=== PATIENT | male | born 1980 | race Caucasian/White ===

== ENCOUNTER 2017-12-01 18:35 | Inpatient (IN) | payer OTHER ==
--- NOTE | 2017-12-01 20:46 | ER Document Report ---
ED Medical Screen (RME) - General Chief Complaint: Skin Sore(s) Stated Complaint: RIGHT TOE PAIN Time Seen by Provider: 12/01/17 20:27 Notes: 37-year-old male with oozing drainage from his right great toe. Probably present for about 3 weeks according to patient. Has been putting some pads in his shoe and going to work. Denies any pain. Drainage mostly occurs after he has been standing on it. Has been cleaning it but not getting any better. Large hole in the bottom of foot on the big toe. Does not know if he has diabetes but states "I am fat so I probably do have diabetes". - HPI Onset: Other - 2 weeks ago Past Medical History - General Information source: Patient - Social History Frequency of alcohol use: None Drug Abuse: None Renal/ Medical History: Denies: Hx Peritoneal Dialysis Review of Systems - Review of Systems Constitutional: denies: Fever, Malaise, Weakness Cardiovascular: Palpitations, Heart racing Respiratory: denies: Hurts to breathe, Short of breath, Wheezing Musculoskeletal: See HPI Skin: See HPI Physical Exam - Vital signs Vitals: Temp Pulse Resp BP Pulse Ox 99.9 F 124 H 16 139/102 H 97 12/01/17 18:55 12/01/17 18:55 12/01/17 18:55 12/01/17 18:55 12/01/17 18:55 - Cardiovascular Rhythm: Tachycardia Heart sounds: Normal auscultation Murmur: No - Extremities General upper extremity: Normal inspection, Nontender, Normal color, Normal ROM , Normal temperature General lower extremity: Nontender, Normal ROM, Normal temperature, Other - Is a large swollen first great toe on the right foot. On the plantar surface there is a large hole with large amount of devitalized tissue with small amount of drainage and bleeding.. No: Ju's sign Course - Vital Signs Vital signs: Temp Pulse Resp BP Pulse Ox 99.9 F 124 H 16 139/102 H 97 12/01/17 18:55 12/01/17 18:55 12/01/17 18:55 12/01/17 18:55 12/01/17 18:55
--- NOTE | 2017-12-01 21:04 | RADIOLOGY REPORT (SQ) ---
EXAM DESCRIPTION: FOOT RIGHT COMPLETE COMPLETED DATE/TIME: 12/01/2017 8:54 pm REASON FOR STUDY: first toe leison COMPARISON: None. NUMBER OF VIEWS: Three views. TECHNIQUE: AP, lateral and oblique radiographic images acquired of the right foot. LIMITATIONS: None. FINDINGS: MINERALIZATION: Normal. BONES: No acute fracture or dislocation. No worrisome bone lesions. JOINTS: No effusions. SOFT TISSUES: Soft tissue swelling 1st toe with possible ulcer along the plantar surface. Vascular c alcifications. OTHER: No other significant finding. IMPRESSION: SOFT TISSUE SWELLING 1ST TOE WITH POSSIBLE ULCER. NO ACUTE OSSEOUS ABNORMALITY. TECHNICAL DOCUMENTATION: JOB ID: [id number] Project [employer]- All Rights Reserved Reading location - IP/workstation name: [email or web address]
[2017-12-01] MEDS ORDERED: DIPH/PERTUSS(ACELL)/TETANUS VAC/PF 0.5 ML SYR (>=10YO) IM ONE (21:06)
--- NOTE | 2017-12-01 21:07 | ER Document Report ---
ED Extremity Problem, Lower - General Chief Complaint: Skin Sore(s) Stated Complaint: RIGHT TOE PAIN Time Seen by Provider: 12/01/17 20:27 Notes: Patient is a 37-year-old morbidly obese male that comes emergency department for chief complaint of swelling and drainage and redness at the right great toe area. He states he thinks he had a blister initially that popped 3 weeks ago and he has had the symptoms since that time. Intermittent discolored drainage. He states the area does not really hurt. He denies fever or chills, nausea or vomiting. He was sent here by urgent care. He denies smoking, alcohol use, drug use, he denies any diagnosed medical problems, his tetanus is not up-to- date. Past Medical History - General Information source: Patient - Social History Smoking Status: Never Smoker Frequency of alcohol use: None Drug Abuse: None Lives with: Alone Family History: Reviewed & Not Pertinent Patient has suicidal ideation: No Patient has homicidal ideation: No - Medical History Medical History: Negative Renal/ Medical History: Denies: Hx Peritoneal Dialysis Surgical Hx: Negative - Immunizations Immunizations up to date: No Hx Diphtheria, Pertussis, Tetanus Vaccination: Yes Review of Systems - Review of Systems Constitutional: No symptoms reported EENT: No symptoms reported Cardiovascular: No symptoms reported Respiratory: No symptoms reported Gastrointestinal: No symptoms reported Genitourinary: No symptoms reported Male Genitourinary: No symptoms reported Musculoskeletal: See HPI Skin: See HPI Hematologic/Lymphatic: No symptoms reported Neurological/Psychological: No symptoms reported Physical Exam - Vital signs Vitals: Temp Pulse Resp BP Pulse Ox 99.9 F 124 H 16 139/102 H 97 12/01/17 18:55 12/01/17 18:55 12/01/17 18:55 12/01/17 18:55 12/01/17 18:55 - Notes Notes: GENERAL: Alert, interacts well. No acute distress. Morbidly obese. HEAD: Normocephalic, atraumatic. EYES: Pupils equal, round, and reactive to light. Extraocular movements intact. ENT: Oral mucosa moist, tongue midline. NECK: Full range of motion. Supple. Trachea midline. LUNGS: Clear to auscultation bilaterally, no wheezes, rales, or rhonchi. No respiratory distress. HEART: Tachycardic rate, normal rhythm. No murmur ABDOMEN: Soft, non-tender. Non-distended. Bowel sounds present in all 4 quadrants. EXTREMITIES: Right great toe with notable swelling with erythema and warmth extending up to the foot, there is also faint redness extending up towards the leg. Ulceration on the bottom of the toe. Remaining lower extremity exam unremarkable. BACK: no cervical, thoracic, lumbar midline tenderness. No saddle anesthesia, normal distal neurovascular exam. NEUROLOGICAL: Alert and oriented x3. Normal speech. [cranial nerves II through XII grossly intact]. PSYCH: Normal affect, normal mood. SKIN: Warm, dry, normal turgor. No rashes or lesions noted. Course - Re-evaluation Re-evalutation: Patient with notable swelling to the right great toe with erythema and warmth extending up to the foot, there is also faint redness extending up towards the leg. Ulceration noted on the bottom of the toe. No purulent drainage noted. Remaining lower extremity exam is unremarkable. Patient is afebrile but he is tachycardic. CBC shows leukocytosis with elevation of neutrophils but no bandemia. ESR and CRP are both elevated. BMP shows hyperglycemia at 281, he has not eaten since 1130 AM, consistent with undiagnosed type 2 diabetes. Starting vancomycin and adding Pseudomonas coverage. X-ray shows soft tissue swelling, ulcer, no overt evidence of osteomyelitis, no free air. Called and spoke with surgery on-call, Dr. Ly, he requests the patient be n.p.o. after midnight and to be admitted to the hospitalist. Called and spoke with Dr. Terry, hospitalist, patient will be admitted to the medical floor. Patient states understanding and agreement with plan. - Vital Signs Vital signs: Temp Pulse Resp BP Pulse Ox 99.9 F 124 H 16 139/102 H 97 12/01/17 18:55 12/01/17 18:55 12/01/17 18:55 12/01/17 18:55 12/01/17 18:55 - Laboratory Result Diagrams: 12/01/17 20:27 12/01/17 20:27 Laboratory results interpreted by me: 12/01/17 12/01/17 12/01/17 20:27 20:27 20:27 WBC 13.9 H Seg Neutrophils % 80.9 H Lymphocytes % 12.0 L Absolute Neutrophils 11.3 H ESR 57 H Glucose Hemoglobin A1c % Calcium ALT C-Reactive Protein 55.0 H 12/01/17 12/01/17 20:27 20:27 WBC Seg Neutrophils % Lymphocytes % Absolute Neutrophils ESR Glucose 281 H Hemoglobin A1c % 11.7 H Calcium 10.3 H ALT 15 L C-Reactive Protein Discharge - Discharge Clinical Impression: Diabetic infection of right foot, Tachycardia Toe ulcer, right Qualifiers: Non-pressure ulcer stage: unspecified non-pressure ulcer stage Qualified Code(s ): L97.519 - Non-pressure chronic ulcer of other part of right foot with unspecified severity Leukocytosis Qualifiers: Leukocytosis type: unspecified Qualified Code(s): D72.829 - Elevated white blood cell count, unspecified Condition: Stable Disposition: ADMITTED INPATIENT Admitting Provider: Hospitalist Unit Admitted: Medical Floor
[2017-12-01] MEDS ORDERED: VANCOMYCIN HCL INJ 1000 MG VIAL IV ONE (21:43)
[2017-12-01 22:00] LABS: ABSOLUTE BASOPHILS # (AUTO) 0.1 10^3/uL (0.0-0.2); ABSOLUTE LYMPHOCYTES (AUTO) 1.7 10^3/uL (0.5-4.7); ABSOLUTE MONOCYTES (AUTO) 0.9 10^3/uL (0.1-1.4); ABSOLUTE NEUT (AUTO) 11.3 10^3/uL (1.7-8.2); BASOPHILS % (AUTO) 0.7 % (0-2); EOSINOPHILS % (AUTO) 0.3 % (0-6); HEMATOCRIT 43.8 % (37.9-51.0); HEMOGLOBIN 15.1 g/dL (13.5-17.0); MEAN CORPUSCULAR HEMOGLOBIN 29.9 pg (27.0-33.4); MEAN CORPUSCULAR HGB CONC 34.5 g/dL (32.0-36.0); MEAN CORPUSCULAR VOLUME 87 fl (80-97); MONOCYTES % (AUTO) 6.1 % (3-13); PLATELET COUNT 298 10^3/uL (150-450); RED BLOOD COUNT 5.05 10^6/uL (4.35-5.55); RED CELL DISTRIBUTION WIDTH 13.3 % (11.5-14.0); SEGMENTED NEUTROPHILS % (AUTO) 80.9 % (42-78); TOTAL CELLS COUNTED % (AUTO) 100 %; WHITE BLOOD COUNT 13.9 10^3/uL (4.0-10.5)
[2017-12-01 22:06] LABS: ALANINE AMINOTRANSFERASE 15 U/L (21-72); ALBUMIN 4.2 g/dL (3.5-5.0); ALKALINE PHOSPHATASE 94 U/L (38-126); ANION GAP 13 (5-19); ASPARTATE AMINO TRANSFERASE 24 U/L (17-59); BILIRUBIN,DIRECT 0.4 mg/dL (0.0-0.4); BILIRUBIN,TOTAL 0.8 mg/dL (0.2-1.3); BLOOD UREA NITROGEN 16 mg/dL (7-20); CALCIUM 10.3 mg/dL (8.4-10.2); CARBON DIOXIDE 30 mmol/L (22-30); CHLORIDE 98 mmol/L (98-107); GLUCOSE 281 mg/dL (75-110); POTASSIUM 4.2 mmol/L (3.6-5.0); SODIUM 140.9 mmol/L (137-145); TOTAL PROTEIN 7.7 g/dL (6.3-8.2)
[2017-12-01] MEDS ORDERED: CEFEPIME 2 GM/D5W RTU 2 GM/50 ML RTUPB IV ONE (22:10)
[2017-12-01] MEDS ORDERED: NORMAL SALINE 1000 ML 1,000 ML IV ONE (22:19)
[2017-12-01] MEDS ORDERED: ONDANSETRON HCL INJ/PF 4 MG/2 ML SDV IV PRN (22:50)
[2017-12-01] MEDS ORDERED: INSULIN LISPRO 100 UNIT/ML 3 ML VIAL SUBCUT PRN (22:50)
[2017-12-01] MEDS ORDERED: GLUCAGON,HUMAN RECOMB 1 MG INJ IM PRN (22:50)
[2017-12-01] MEDS ORDERED: DEXTROSE 50%-WATER 25 GM/50 ML DISP.SYRIN IV PRN ×2 (22:50)
[2017-12-01] MEDS ORDERED: DEXTROSE 40% GEL 15 GM TUBE PO PRN ×2 (22:50)
[2017-12-01] MEDS ORDERED: MAG HYDROX/AL HYDROX/SIMETH SUSP 30 ML UDCUP PO PRN (22:50)
[2017-12-01] MEDS ORDERED: IPRATROPIUM/ALBUTEROL 0.5-2.5 MG/3 ML AMPUL NEB PRN (22:50)
[2017-12-01] MEDS ORDERED: FENTANYL CITRATE INJ/PF 100 MCG/2 ML AMPUL IV PRN (22:53)
[2017-12-02] MEDS ORDERED: VANCOMYCIN HCL 0 MG in DEXTROSE 5%-WATER 250 ML IV NR (02:00)
--- NOTE | 2017-12-02 04:14 | PDOC H&P ---
History of Present Illness Admission Date/PCP: 12/01/17 23:13 NO LOCALMD Patient complains of: Right toe ulcer History of Present Illness: SVETA HAYES is a 37 year old male with a past medical history of morbid obesity presents with approximately 3 weeks of right toe blister which has been nonpainful however developed a large ulcer with serosanguineous drainage, prompting him to seek evaluation emergency room. Patient denies previous episode. In the emergency room he is found to have a 1 x 1 cm ulcer to the plantar surface of his great toe with surrounding maceration. He denies antibiotic use and is also found to have hyperglycemia of 280. Admitting weight loss over the last year. He started on empiric antibiotics and for the hospitalist for admission. Past Medical History Medical History: None Past Surgical History Past Surgical History: Reports: None Social History Information Source: Patient, [facility] Records Lives with: Alone Smoking Status: Never Smoker Frequency of Alcohol Use: None Hx Recreational Drug Use: No Drugs: None Hx Prescription Drug Abuse: No - Advance Directive Resuscitation Status: Full Code Family History Family History: DM, Other - Father's suicide and mother's brain cancer Parental Family History Reviewed: Yes Children Family History Reviewed: Yes Sibling(s) Family History Reviewed.: Yes Medication/Allergy Allergies/Adverse Reactions: No Known Allergies Allergy (Unverified 12/02/17 02:10) Review of Systems Constitutional: PRESENT: as per HPI, fatigue, weakness, weight loss Eyes: ABSENT: visual disturbances Ears: ABSENT: hearing changes Cardiovascular: ABSENT: chest pain, dyspnea on exertion, edema, orthropnea, palpitations Respiratory: ABSENT: cough, hemoptysis Gastrointestinal: PRESENT: as per HPI, bloating. ABSENT: coffee ground emesis, constipation Genitourinary: PRESENT: other - Polyuria polydipsia Musculoskeletal: ABSENT: joint swelling Integumentary: PRESENT: as per HPI Neurological: PRESENT: numbness. ABSENT: abnormal gait, abnormal speech, confusion, dizziness, focal weakness, syncope Psychiatric: ABSENT: anxiety, depression, homidical ideation, suicidal ideation Endocrine: ABSENT: cold intolerance, heat intolerance, polydipsia, polyuria Hematologic/Lymphatic: ABSENT: easy bleeding, easy bruising Physical Exam Vital Signs: Temp Pulse Resp BP Pulse Ox 98.3 F 109 H 18 135/89 H 100 12/02/17 01:45 12/02/17 01:45 12/02/17 01:45 12/02/17 01:45 12/02/17 01:45 Intake & Output 11/30/17 12/01/17 12/02/17 11:59 11:59 11:59 Weight 135 kg General appearance: PRESENT: cooperative, morbidly obese. ABSENT: hard of hearing Head exam: PRESENT: atraumatic, normocephalic Eye exam: PRESENT: conjunctiva pink, EOMI, PERRLA. ABSENT: scleral icterus Ear exam: PRESENT: normal external ear exam Mouth exam: PRESENT: moist, tongue midline Neck exam: ABSENT: carotid bruit, JVD, lymphadenopathy, thyromegaly Respiratory exam: PRESENT: clear to auscultation cinthia. ABSENT: rales, rhonchi, wheezes Cardiovascular exam: PRESENT: RRR. ABSENT: diastolic murmur, rubs, systolic murmur Pulses: PRESENT: normal dorsalis pedis pul Vascular exam: PRESENT: normal capillary refill GI/Abdominal exam: PRESENT: normal bowel sounds, soft. ABSENT: distended, guarding, mass, organolmegaly, rebound, tenderness Rectal exam: PRESENT: deferred Extremities exam: PRESENT: other - Lower extremity with chronic vascular changes Neurological exam: PRESENT: alert, awake, oriented to person, oriented to place , oriented to time, oriented to situation, CN II-XII grossly intact. ABSENT: motor sensory deficit Psychiatric exam: PRESENT: appropriate affect, normal mood. ABSENT: homicidal ideation, suicidal ideation Skin exam: PRESENT: other - 1 x 1 cm ulcer to the right great toe plantar surface Results Impressions: Foot X-Ray 12/01/17 20:21 IMPRESSION: SOFT TISSUE SWELLING 1ST TOE WITH POSSIBLE ULCER. NO ACUTE OSSEOUS ABNORMALITY. Assessment & Plan - Diagnosis (1) Diabetic infection of right foot Is this a current diagnosis for this admission?: Yes Plan: Empiric antibiotics for MRSA coverage, surgery consult. Follow-up CBC and culture (2) Newly diagnosed diabetes Is this a current diagnosis for this admission?: Yes Plan: Humalog sliding scale while n.p.o., follow-up A1c, education (3) Leukocytosis Qualifiers: Leukocytosis type: unspecified Qualified Code(s): D72.829 - Elevated white blood cell count, unspecified Is this a current diagnosis for this admission?: Yes Plan: Secondary to #1, empiric antibiotics initiated, follow-up CBC and blood culture - Time Time Spent: 30 to 50 Minutes - Inpatient Certification Medical Necessity: Need Close Monitoring Due to Risk of Patient Decompensation
[2017-12-02] MEDS: HEPARIN SOD (PORCINE) 5,000 UNIT/ML 1 ML SYRINGE SUBCUT SCH ×3 (05:23→21:16)
[2017-12-02] MEDS ORDERED: NORMAL SALINE 1000 ML 1,000 ML IV PRN (06:13)
--- NOTE | 2017-12-02 06:33 | PDOC CONSULTATION ---
Consultation Consult Date: 12/02/17 Attending physician:: BARRERA MARTÍNEZ Consult reason:: Infected right great toe History of Present Illness Admission Date/PCP: 12/01/17 23:13 NO LOCALMD Patient complains of: Right great toe problems History of Present Illness: SVETA HAYES is a 37 year old male Who presents to the emergency department complaining of a several week history of swelling, discoloration, drainage from his right great toe. He denies history of direct trauma. This is his first toe infection. He was seen in the emergency department where he was found to have an infected right great toe, leukocytosis, and elevated blood sugar. He denies history of diabetes mellitus. He was admitted to the hospitalist service with surgical services consulted. X-ray revealed ulcer right great toe no obvious evidence of osteomyelitis . He was started on intravenous antibiotics. Past Medical History Past Medical History: Obesity Past Surgical History Past Surgical History: Reports: None Social History Lives with: Alone Smoking Status: Never Smoker Frequency of Alcohol Use: None Hx Recreational Drug Use: No Drugs: None Hx Prescription Drug Abuse: No - Advance Directive Resuscitation Status: Full Code Family History Family History: DM, Other - Suicide: Father's suicide and mother's brain cancer Parental Family History Reviewed: Yes Children Family History Reviewed: Yes Sibling(s) Family History Reviewed.: Yes Medication/Allergy Allergies/Adverse Reactions: No Known Allergies Allergy (Unverified 12/02/17 02:10) Review of Systems Constitutional: PRESENT: as per HPI Eyes: ABSENT: visual disturbances Ears: ABSENT: hearing changes Cardiovascular: ABSENT: chest pain, dyspnea on exertion, edema, orthropnea, palpitations Gastrointestinal: ABSENT: abdominal pain, constipation, diarrhea, hematemesis, hematochezia, nausea, vomiting Genitourinary: ABSENT: dysuria, hematuria Musculoskeletal: ABSENT: joint swelling Integumentary: ABSENT: rash, wounds Neurological: ABSENT: abnormal gait, abnormal speech, confusion, dizziness, focal weakness, syncope Physical Exam Vital Signs: Temp Pulse Resp BP Pulse Ox 98.3 F 109 H 18 135/89 H 100 12/02/17 01:45 12/02/17 01:45 12/02/17 01:45 12/02/17 01:45 12/02/17 01:45 Intake & Output 11/30/17 12/01/17 12/02/17 06:59 06:59 06:59 Weight 135 kg General appearance: PRESENT: no acute distress Head exam: PRESENT: normocephalic Eye exam: PRESENT: EOMI Mouth exam: PRESENT: dry mucosa Respiratory exam: PRESENT: clear to auscultation cinthia Cardiovascular exam: PRESENT: RRR Pulses: PRESENT: normal carotid pulses, normal radial pulses, other - Unable to palpate pulses in the feet GI/Abdominal exam: PRESENT: other - Soft nontender no peritoneal signs Rectal exam: PRESENT: deferred Musculoskeletal exam: PRESENT: full ROM, other - Calluses bilateral heels; right great toe with open ulcer with purulent discharge; swelling throughout the toe with overlying discolored skin dorsal aspect; erythema stops at the webspace. I cannot palpate pulses in the feet possibly due to edema. The feet are warm Results Impressions: Foot X-Ray 12/01/17 20:21 IMPRESSION: SOFT TISSUE SWELLING 1ST TOE WITH POSSIBLE ULCER. NO ACUTE OSSEOUS ABNORMALITY. Assessment & Plan - Diagnosis (1) Diabetic infection of right foot Is this a current diagnosis for this admission?: Yes Plan: With ulceration purulent discharge, and threatened right great toe Plan: 1. Continue intravenous antibiotics, IV fluids, n.p.o. 2. Patient needs to be taken to the operating room for debridement: Procedure to be performed by Dr. Maxwell: I explained to the patient he may require more than one operation; furthermore I emphasized that his toe is in jeopardy and he may lose it. (2) Morbid obesity with BMI of 40.0-44.9, adult Is this a current diagnosis for this admission?: Yes (3) Newly diagnosed diabetes Is this a current diagnosis for this admission?: Yes Plan: Now admitted for IV fluids and diabetic management - Time Time Spent: 30 to 50 Minutes Smoking Cessation Education: 3 to 10 minutes Medications reviewed and adjusted accordingly: Yes Anticipated discharge: Home - Inpatient Certification Based on my medical assessment, after consideration of the patient's comorbidities, presenting symptoms, or acuity I expect that the services needed warrant INPATIENT care.: Yes I certify that my determination is in accordance with my understanding of Medicare's requirements for reasonable and necessary INPATIENT services [42 CFR 412.3e].: Yes Medical Necessity: Need For IV Fluids, Need for Pain Control, Need for IV Antibiotics, Need for Surgery
[2017-12-02 07:50] LABS: ABSOLUTE BASOPHILS # (AUTO) 0.1 10^3/uL (0.0-0.2); ABSOLUTE EOSINOPHILS # (AUTO) 0.1 10^3/uL (0.0-0.6); ABSOLUTE LYMPHOCYTES (AUTO) 1.5 10^3/uL (0.5-4.7); ABSOLUTE MONOCYTES (AUTO) 0.7 10^3/uL (0.1-1.4); ABSOLUTE NEUT (AUTO) 6.3 10^3/uL (1.7-8.2); EOSINOPHILS % (AUTO) 0.9 % (0-6); HEMATOCRIT 37.6 % (37.9-51.0); HEMOGLOBIN 13.1 g/dL (13.5-17.0); LYMPHOCYTES % (AUTO) 17.6 % (13-45); MEAN CORPUSCULAR HEMOGLOBIN 30.2 pg (27.0-33.4); MEAN CORPUSCULAR HGB CONC 34.7 g/dL (32.0-36.0); MEAN CORPUSCULAR VOLUME 87 fl (80-97); MONOCYTES % (AUTO) 7.6 % (3-13); PLATELET COUNT 240 10^3/uL (150-450); RED BLOOD COUNT 4.33 10^6/uL (4.35-5.55); RED CELL DISTRIBUTION WIDTH 13.5 % (11.5-14.0); SEGMENTED NEUTROPHILS % (AUTO) 72.9 % (42-78); TOTAL CELLS COUNTED % (AUTO) 100 %; WHITE BLOOD COUNT 8.7 10^3/uL (4.0-10.5)
--- NOTE | 2017-12-02 07:57 | Progress Note ---
Provider Note Provider Note: 37 y/o M with a diabteic foot infection. He has necrotic tissue on the plantar surface of the toe. I have recommended debridement to him in an effort to assist with healing. The pt has agreed to this. Risks/benefits discussed, informed consent obtained, and all questions answered.
[2017-12-02 08:16] LABS: ANION GAP 11 (5-19); BLOOD UREA NITROGEN 13 mg/dL (7-20); CALCIUM 9.2 mg/dL (8.4-10.2); CARBON DIOXIDE 25 mmol/L (22-30); CHLORIDE 103 mmol/L (98-107); GLUCOSE 264 mg/dL (75-110); POTASSIUM 4.1 mmol/L (3.6-5.0); SODIUM 138.7 mmol/L (137-145)
[2017-12-02] MEDS ORDERED: LIDOCAINE 1% INJ-PF (10 MG/ML) 30 ML SDV ONE (09:42)
[2017-12-02] MEDS ORDERED: BUPIVACAINE HCL 0.25 % INJ/PF (2.5 MG/1 ML) 30 ML VIAL ONE (09:42)
[2017-12-02] MEDS ORDERED: FENTANYL CITRATE INJ/PF 100 MCG/2 ML AMPUL ONE ×2 (09:45→11:09)
[2017-12-02] MEDS ORDERED: PROPOFOL INJ 200 MG/20 ML VIAL IV ONE (09:46)
[2017-12-02] MEDS ORDERED: MIDAZOLAM 2 MG/2 ML INJ ONE (09:46)
[2017-12-02] MEDS ORDERED: VANCOMYCIN HCL 2,000 MG in DEXTROSE 5%-WATER 500 ML IV ONE (10:00)
[2017-12-02] MEDS ORDERED: HYDROCODONE/ACETAMINOPHEN 10-325 MG TABLET PO PRN (11:59)
[2017-12-02] MEDS: CEFEPIME 1 GM/D5W RTU 1 GM/50 ML RTUPB IV SCH ×2 (12:10→21:08)
[2017-12-02] MEDS: DOCUSATE SODIUM 100 MG CAPSULE PO SCH ×2 (12:12→17:00)
[2017-12-02] MEDS: VANCOMYCIN HCL 2,000 MG in DEXTROSE 5%-WATER 500 ML IV SCH ×2 (15:04→22:27)
[2017-12-02] MEDS ORDERED: HYDRALAZINE HCL INJ/PF 20 MG/1 ML SDV IV PRN (15:29)
[2017-12-02] MEDS: INSULIN LISPRO 100 UNIT/ML 3 ML VIAL SUBCUT PRN ×2 (17:00→22:28)
--- NOTE | 2017-12-02 19:12 | PDOC PROGRESS REPORT ---
Subjective Progress Note for:: 12/02/17 Subjective:: The patient is a 37-year-old male with past medical history of morbid obesity ( previously super morbid obesity; has lost approximately 200 pounds) who was admitted on 12/01/17 for diabetic wound to right great. Patient is seen on rounds this afternoon. He is found resting in bed comfortably on room air. He is returned from the OR status post wound debridement by Dr. Maxwell. He denies pain at this time. He has no questions or concerns presently. Reason For Visit: DIABETES,TOE ULCER Physical Exam Vital Signs: Temp Pulse Resp BP Pulse Ox 98.2 F 98 16 135/80 H 97 12/02/17 15:05 12/02/17 15:05 12/02/17 15:05 12/02/17 15:05 12/02/17 15:05 Intake & Output 12/01/17 12/02/17 12/03/17 06:59 06:59 06:59 Intake Total 2488 Balance 2488 Weight 135 kg 135 kg General appearance: PRESENT: no acute distress, obese, well-developed, well- nourished Head exam: PRESENT: atraumatic, normocephalic Eye exam: PRESENT: conjunctiva pink, EOMI, PERRLA. ABSENT: scleral icterus Ear exam: PRESENT: normal external ear exam Mouth exam: PRESENT: moist, tongue midline Neck exam: ABSENT: carotid bruit, JVD, lymphadenopathy, thyromegaly Respiratory exam: PRESENT: clear to auscultation cinthia. ABSENT: rales, rhonchi, wheezes Cardiovascular exam: PRESENT: RRR. ABSENT: diastolic murmur, rubs, systolic murmur Pulses: PRESENT: normal dorsalis pedis pul Vascular exam: PRESENT: normal capillary refill GI/Abdominal exam: PRESENT: normal bowel sounds, soft. ABSENT: distended, guarding, mass, organolmegaly, rebound, tenderness Rectal exam: PRESENT: deferred Extremities exam: PRESENT: full ROM. ABSENT: calf tenderness, clubbing, pedal edema Neurological exam: PRESENT: alert, awake, oriented to person, oriented to place , oriented to time, oriented to situation, CN II-XII grossly intact. ABSENT: motor sensory deficit Psychiatric exam: PRESENT: appropriate affect, normal mood. ABSENT: homicidal ideation, suicidal ideation Skin exam: PRESENT: dry, warm, other - Wound to right great toe not visualized; surgical dressing in place. Clean dry and intact without evidence of bleeding or drainage.. ABSENT: cyanosis, intact, rash Results Laboratory Results: 12/02/17 07:05 12/02/17 07:05 12/02/17 12/02/17 07:05 07:05 WBC 8.7 RBC 4.33 L Hgb 13.1 L Hct 37.6 L MCV 87 MCH 30.2 MCHC 34.7 RDW 13.5 Plt Count 240 Seg Neutrophils % 72.9 Lymphocytes % 17.6 Monocytes % 7.6 Eosinophils % 0.9 Basophils % 1.0 Absolute Neutrophils 6.3 Absolute Lymphocytes 1.5 Absolute Monocytes 0.7 Absolute Eosinophils 0.1 Absolute Basophils 0.1 Sodium 138.7 Potassium 4.1 Chloride 103 Carbon Dioxide 25 Anion Gap 11 BUN 13 Creatinine 0.57 Est GFR ( Amer) > 60 Est GFR (Non-Af Amer) > 60 Glucose 264 H Calcium 9.2 Impressions: Foot X-Ray 12/01/17 20:21 IMPRESSION: SOFT TISSUE SWELLING 1ST TOE WITH POSSIBLE ULCER. NO ACUTE OSSEOUS ABNORMALITY. Assessment & Plan - Diagnosis (1) Diabetic infection of right foot Is this a current diagnosis for this admission?: Yes Plan: The patient was admitted to the medical floor. Blood and wound cultures are pending. He has been empirically placed on IV cefepime. Surgery has been consulted; appreciate their expert assistance. Patient is now status post surgical debridement. Wound care per their recommendations. (2) Newly diagnosed diabetes Is this a current diagnosis for this admission?: Yes Plan: Hemoglobin A1c 11.7%. Patient is placed on a consistent carb diet. Accu-Cheks before meals and at bedtime with Humalog for sliding scale coverage. Given his elevated A1c and diabetic foot wound; will treat new onset diabetes aggressively with long acting insulin. Initiating Lantus 10 units nightly. We will ask the staff development educator and registered dietitian to meet with the patient. We will ask the discharge planners to evaluate for needs. (3) Morbid obesity with BMI of 40.0-44.9, adult Is this a current diagnosis for this admission?: Yes Plan: Dietary discretion is advised. The staff development educator and registered dietitian have been consulted. (4) Leukocytosis Qualifiers: Leukocytosis type: unspecified Qualified Code(s): D72.829 - Elevated white blood cell count, unspecified Is this a current diagnosis for this admission?: Yes Plan: Resolved; secondary to #1. - Time Time Spent with patient: 15-24 minutes Medications reviewed and adjusted accordingly: Yes Anticipated discharge: Home - Inpatient Certification Based on my medical assessment, after consideration of the patient's comorbidities, presenting symptoms, or acuity I expect that the services needed warrant INPATIENT care.: Yes I certify that my determination is in accordance with my understanding of Medicare's requirements for reasonable and necessary INPATIENT services [42 CFR 412.3e].: Yes Medical Necessity: Need For IV Fluids, Need for Surgery
[2017-12-02] MEDS: INSULIN GLARGINE,HUM.REC.ANLOG 300 UNIT/3 ML INSULN.PEN SUBCUT SCH (22:29)
[2017-12-02] MEDS: ACETAMINOPHEN 325 MG TABLET PO PRN (22:31)
[2017-12-03] MEDS: VANCOMYCIN HCL 2,000 MG in DEXTROSE 5%-WATER 500 ML IV SCH ×4 (04:19→22:30)
[2017-12-03 05:02] LABS: ABSOLUTE BASOPHILS # (AUTO) 0.1 10^3/uL (0.0-0.2); ABSOLUTE EOSINOPHILS # (AUTO) 0.2 10^3/uL (0.0-0.6); ABSOLUTE LYMPHOCYTES (AUTO) 1.6 10^3/uL (0.5-4.7); ABSOLUTE MONOCYTES (AUTO) 0.6 10^3/uL (0.1-1.4); BASOPHILS % (AUTO) 1.8 % (0-2); EOSINOPHILS % (AUTO) 2.1 % (0-6); HEMATOCRIT 38.1 % (37.9-51.0); HEMOGLOBIN 13.1 g/dL (13.5-17.0); LYMPHOCYTES % (AUTO) 21.7 % (13-45); MEAN CORPUSCULAR HEMOGLOBIN 29.8 pg (27.0-33.4); MEAN CORPUSCULAR HGB CONC 34.5 g/dL (32.0-36.0); MEAN CORPUSCULAR VOLUME 86 fl (80-97); MONOCYTES % (AUTO) 8.2 % (3-13); PLATELET COUNT 241 10^3/uL (150-450); RED BLOOD COUNT 4.41 10^6/uL (4.35-5.55); RED CELL DISTRIBUTION WIDTH 13.2 % (11.5-14.0); SEGMENTED NEUTROPHILS % (AUTO) 66.2 % (42-78); TOTAL CELLS COUNTED % (AUTO) 100 %; WHITE BLOOD COUNT 7.6 10^3/uL (4.0-10.5)
[2017-12-03 05:24] LABS: ANION GAP 10 (5-19); BLOOD UREA NITROGEN 12 mg/dL (7-20); CALCIUM 8.7 mg/dL (8.4-10.2); CARBON DIOXIDE 26 mmol/L (22-30); CHLORIDE 102 mmol/L (98-107); GLUCOSE 252 mg/dL (75-110); POTASSIUM 4.1 mmol/L (3.6-5.0); SODIUM 138.1 mmol/L (137-145)
[2017-12-03] MEDS: HEPARIN SOD (PORCINE) 5,000 UNIT/ML 1 ML SYRINGE SUBCUT SCH ×3 (05:39→21:38)
[2017-12-03] MEDS: INSULIN LISPRO 100 UNIT/ML 3 ML VIAL SUBCUT PRN ×4 (07:32→21:37)
--- NOTE | 2017-12-03 07:43 | Operative Report ---
Nonrecallable Operative Report DATE OF SURGERY: 12/02/17 PREOPERATIVE DIAGNOSIS: 1. Diabetic foot infection. 2. Abscess of the right great toe POSTOPERATIVE DIAGNOSIS: 1. Diabetic foot infection. 2. Abscess of the right great toe, involving the nail bed. OPERATION: 1. Sharp/excisional debridement of skin, fatty soft tissue, and necrotic muscle of the right great toe. 2. Drainage of abscess of the right great toe. 3. Removal of the entire right great toenail. 4. Bone biopsy for culture. SURGEON: YUE ALAMO ANESTHESIA: LMAC TISSUE REMOVED OR ALTERED: Bone biopsy for culture COMPLICATIONS: Involvement of the right great toenail and bone. ESTIMATED BLOOD LOSS: 10 cc PROCEDURE: Drains/implants: Silver impregnated dressing. Procedure in detail: After informed consent was obtained, the patient was laid in the supine position in the operating room. The area of the right foot was prepped and draped in a normal sterile fashion. It was inspected. It was probed with a blunt instrument. The large ulcerated area on the plantar surface of the right great toe extended all the way through the toe, underneath the toenail. The tip of the blunt probe was found to lie underneath the toenail , therefore the toenail was removed. A blunt instrument was used to free the toenail from the nail bed. It was removed bluntly. There was abscess found beneath the right great toenail. Next, attention was turned to debridement of the ulcerated area. There was necrotic tissue within the bed of the ulcer, as well as at the margin. Skin, fatty soft tissue, and some muscle was debrided away sharply and excisionally. The necrotic tissue extended all the way to the bone of the toe. The bone immediately adjacent to the necrotic tissue was sampled for biopsy with a rongeur. The total debridement area was 2 cm x 2 cm in width, and 1 cm in depth. Once this was complete, the wound was copiously irrigated and a silver impregnated dressing was placed. The procedure at this time was concluded. All sponge, instrument, and needle counts were correct 2. Condition: Fair.
[2017-12-03] MEDS: LISINOPRIL 5 MG TABLET PO SCH (09:08)
[2017-12-03] MEDS: MULTIVITAMIN TABLET PO SCH (09:08)
[2017-12-03] MEDS: DOCUSATE SODIUM 100 MG CAPSULE PO SCH ×2 (09:08→17:04)
[2017-12-03] MEDS: CEFEPIME 1 GM/D5W RTU 1 GM/50 ML RTUPB IV SCH ×2 (09:08→21:37)
[2017-12-03 09:49] LABS: VANCOMYCIN,TROUGH 20.5 ug/mL (5.0-20.0)
[2017-12-03] MEDS ORDERED: (PENDING PHARMACY ID) (Multivit-Min/Folic/Vit K/Lycop [One-A-Day Men's 50 Plus Tablet] 1 E PO SCH (10:00)
--- NOTE | 2017-12-03 10:44 | PDOC PROGRESS REPORT ---
Subjective Progress Note for:: 12/03/17 Subjective:: The patient is a 37-year-old male with past medical history of morbid obesity ( previously super morbid obesity; has lost approximately 200 pounds) who was admitted on 12/01/17 for diabetic wound to right great. Patient is seen on morning rounds. He is postop day 1 after surgical debridement of his right great toe. He is found resting in bed comfortably on room air eating his breakfast. He states that he is feeling well today and denies discomfort to his right foot. He denies fever, chills, headache, chest pain, palpitations, dyspnea, abdominal pain, nausea vomiting and diarrhea. He appears to be motivated to learn about self management of his diabetes and was able to inject his Lantus last night. He has no questions or concerns today. Reason For Visit: DIABETES,TOE ULCER Physical Exam Vital Signs: Temp Pulse Resp BP Pulse Ox 97.6 F 81 16 125/78 99 12/03/17 07:47 12/03/17 08:43 12/03/17 08:43 12/03/17 07:47 12/03/17 08:43 Intake & Output 12/02/17 12/03/17 12/04/17 06:59 06:59 06:59 Intake Total 3988 Balance 3988 Weight 135 kg 135 kg General appearance: PRESENT: no acute distress, cooperative, morbidly obese, well-developed, well-nourished Head exam: PRESENT: atraumatic, normocephalic Eye exam: PRESENT: conjunctiva pink, EOMI, PERRLA. ABSENT: scleral icterus Ear exam: PRESENT: normal external ear exam Mouth exam: PRESENT: moist, tongue midline Neck exam: ABSENT: carotid bruit, JVD, lymphadenopathy, thyromegaly Respiratory exam: PRESENT: clear to auscultation cinthia, symmetrical, unlabored. ABSENT: rales, rhonchi, wheezes Cardiovascular exam: PRESENT: RRR, +S1, +S2. ABSENT: diastolic murmur, rubs, systolic murmur Pulses: PRESENT: normal dorsalis pedis pul Vascular exam: PRESENT: normal capillary refill GI/Abdominal exam: PRESENT: normal bowel sounds, soft. ABSENT: distended, guarding, mass, organolmegaly, rebound, tenderness Rectal exam: PRESENT: deferred Extremities exam: PRESENT: full ROM, +1 edema - Nonpitting right lower leg. ABSENT: calf tenderness, clubbing, pedal edema Neurological exam: PRESENT: alert, awake, oriented to person, oriented to place , oriented to time, oriented to situation, CN II-XII grossly intact. ABSENT: motor sensory deficit Psychiatric exam: PRESENT: appropriate affect, normal mood. ABSENT: homicidal ideation, suicidal ideation Skin exam: PRESENT: dry, warm, other - Right great toe not visualized; clean dry dressing in place. ABSENT: cyanosis, intact, rash Results Laboratory Results: 12/03/17 04:39 12/03/17 08:58 12/03/17 12/03/17 12/03/17 04:39 04:39 08:58 WBC 7.6 RBC 4.41 Hgb 13.1 L Hct 38.1 MCV 86 MCH 29.8 MCHC 34.5 RDW 13.2 Plt Count 241 Seg Neutrophils % 66.2 Lymphocytes % 21.7 Monocytes % 8.2 Eosinophils % 2.1 Basophils % 1.8 Absolute Neutrophils 5.0 Absolute Lymphocytes 1.6 Absolute Monocytes 0.6 Absolute Eosinophils 0.2 Absolute Basophils 0.1 Sodium 138.1 Potassium 4.1 Chloride 102 Carbon Dioxide 26 Anion Gap 10 BUN 12 Creatinine 0.59 0.55 Est GFR ( Amer) > 60 > 60 Est GFR (Non-Af Amer) > 60 > 60 Glucose 252 H Calcium 8.7 Impressions: Foot X-Ray 12/01/17 20:21 IMPRESSION: SOFT TISSUE SWELLING 1ST TOE WITH POSSIBLE ULCER. NO ACUTE OSSEOUS ABNORMALITY. Assessment & Plan - Diagnosis (1) Diabetic infection of right foot Is this a current diagnosis for this admission?: Yes Plan: The patient was admitted to the medical floor. Blood cultures have no growth to date. Wound cultures are pending. He has been empirically placed on IV vancomycin and cefepime. Surgery has been consulted; appreciate their expert assistance. Patient is now status post surgical debridement. Wound care per their recommendations. (2) Newly diagnosed diabetes Is this a current diagnosis for this admission?: Yes Plan: Hemoglobin A1c 11.7%. Patient is placed on a consistent carb diet. Accu-Cheks before meals and at bedtime with Humalog for sliding scale coverage. Given his elevated A1c and diabetic foot wound; will treat new onset diabetes aggressively with long acting insulin. Initiating Lantus 10 units nightly. We will ask the informatics educator and registered dietitian to meet with the patient. We will ask the discharge planners to evaluate for needs; patient may benefit from home health nursing for disease management and education. (3) Hypertension Is this a current diagnosis for this admission?: Yes Plan: Improved following initiation of lisinopril. Continue lisinopril 5 mg daily. IV hydralazine as needed for blood pressure control. (4) Morbid obesity with BMI of 40.0-44.9, adult Is this a current diagnosis for this admission?: Yes Plan: Dietary discretion is advised. The informatics educator and registered dietitian have been consulted. (5) Leukocytosis Qualifiers: Leukocytosis type: unspecified Qualified Code(s): D72.829 - Elevated white blood cell count, unspecified Is this a current diagnosis for this admission?: Yes Plan: Resolved; secondary to #1. - Time Time Spent with patient: 15-24 minutes Medications reviewed and adjusted accordingly: Yes Anticipated discharge: Home
--- NOTE | 2017-12-03 12:01 | PDOC PROGRESS REPORT ---
Subjective Reason For Visit: DIABETES,TOE ULCER Physical Exam Vital Signs: Temp Pulse Resp BP Pulse Ox 97.6 F 81 16 125/78 99 12/03/17 07:47 12/03/17 08:43 12/03/17 08:43 12/03/17 07:47 12/03/17 08:43 Intake & Output 12/02/17 12/03/17 12/04/17 06:59 06:59 06:59 Intake Total 3988 Balance 3988 Weight 135 kg 135 kg Results Laboratory Results: 12/03/17 04:39 12/03/17 08:58 12/03/17 12/03/17 12/03/17 04:39 04:39 08:58 WBC 7.6 RBC 4.41 Hgb 13.1 L Hct 38.1 MCV 86 MCH 29.8 MCHC 34.5 RDW 13.2 Plt Count 241 Seg Neutrophils % 66.2 Lymphocytes % 21.7 Monocytes % 8.2 Eosinophils % 2.1 Basophils % 1.8 Absolute Neutrophils 5.0 Absolute Lymphocytes 1.6 Absolute Monocytes 0.6 Absolute Eosinophils 0.2 Absolute Basophils 0.1 Sodium 138.1 Potassium 4.1 Chloride 102 Carbon Dioxide 26 Anion Gap 10 BUN 12 Creatinine 0.59 0.55 Est GFR ( Amer) > 60 > 60 Est GFR (Non-Af Amer) > 60 > 60 Glucose 252 H Calcium 8.7 Impressions: Foot X-Ray 12/01/17 20:21 IMPRESSION: SOFT TISSUE SWELLING 1ST TOE WITH POSSIBLE ULCER. NO ACUTE OSSEOUS ABNORMALITY. Assessment & Plan - Diagnosis (1) Diabetic infection of right foot Is this a current diagnosis for this admission?: Yes - Plan Summary Plan Summary: This is a 37-year-old male status post debridement for a diabetic toe ulcer with abscess. The plantar surface looks good this morning without signs of active purulence. The nailbed still has small amount of purulent material. Wound was irrigated and cleaned. Silver dressing was applied. Continue with silver dressing twice daily, covered by dry Kerlix. Continue antibiotics. If no significant improvement is seen, the patient may require further surgery ( possibly amputation).
[2017-12-03] MEDS: INSULIN GLARGINE,HUM.REC.ANLOG 300 UNIT/3 ML INSULN.PEN SUBCUT SCH (21:37)
[2017-12-04] MEDS: HEPARIN SOD (PORCINE) 5,000 UNIT/ML 1 ML SYRINGE SUBCUT SCH ×3 (05:06→23:43)
[2017-12-04] MEDS: VANCOMYCIN HCL 2,000 MG in DEXTROSE 5%-WATER 500 ML IV SCH ×2 (05:15→15:10)
[2017-12-04 07:32] LABS: ABSOLUTE BASOPHILS # (AUTO) 0.1 10^3/uL (0.0-0.2); ABSOLUTE EOSINOPHILS # (AUTO) 0.2 10^3/uL (0.0-0.6); ABSOLUTE LYMPHOCYTES (AUTO) 1.3 10^3/uL (0.5-4.7); ABSOLUTE MONOCYTES (AUTO) 0.5 10^3/uL (0.1-1.4); ABSOLUTE NEUT (AUTO) 3.7 10^3/uL (1.7-8.2); BASOPHILS % (AUTO) 1.3 % (0-2); EOSINOPHILS % (AUTO) 2.7 % (0-6); HEMATOCRIT 36.6 % (37.9-51.0); HEMOGLOBIN 12.6 g/dL (13.5-17.0); LYMPHOCYTES % (AUTO) 22.1 % (13-45); MEAN CORPUSCULAR HEMOGLOBIN 29.4 pg (27.0-33.4); MEAN CORPUSCULAR HGB CONC 34.4 g/dL (32.0-36.0); MEAN CORPUSCULAR VOLUME 86 fl (80-97); MONOCYTES % (AUTO) 8.8 % (3-13); PLATELET COUNT 238 10^3/uL (150-450); RED BLOOD COUNT 4.28 10^6/uL (4.35-5.55); RED CELL DISTRIBUTION WIDTH 13.2 % (11.5-14.0); SEGMENTED NEUTROPHILS % (AUTO) 65.1 % (42-78); TOTAL CELLS COUNTED % (AUTO) 100 %; WHITE BLOOD COUNT 5.8 10^3/uL (4.0-10.5)
[2017-12-04] MEDS: INSULIN LISPRO 100 UNIT/ML 3 ML VIAL SUBCUT PRN ×3 (07:49→21:45)
[2017-12-04 07:55] LABS: ANION GAP 9 (5-19); BLOOD UREA NITROGEN 12 mg/dL (7-20); CALCIUM 8.4 mg/dL (8.4-10.2); CARBON DIOXIDE 27 mmol/L (22-30); CHLORIDE 102 mmol/L (98-107); GLUCOSE 277 mg/dL (75-110); SODIUM 138.1 mmol/L (137-145)
--- NOTE | 2017-12-04 09:18 | PDOC PROGRESS REPORT ---
Subjective Progress Note for:: 12/04/17 Subjective:: Having some pain in the right great toe. Reason For Visit: DIABETES,TOE ULCER Physical Exam Vital Signs: Temp Pulse Resp BP Pulse Ox 97.6 F 85 18 129/72 H 97 12/04/17 08:00 12/04/17 08:00 12/04/17 08:00 12/04/17 08:00 12/04/17 08:00 Intake & Output 12/03/17 12/04/17 12/05/17 06:59 06:59 06:59 Intake Total 4588 1910 Output Total 10 Balance 4578 1910 Weight 135 kg 135.2 kg General appearance: PRESENT: no acute distress Musculoskeletal exam: PRESENT: other - The right great toe is swollen, red all the way to the webspace; there is pus draining from the plantar as well as dorsal surfaces Results Laboratory Results: 12/04/17 06:35 12/04/17 06:35 12/03/17 12/04/17 12/04/17 08:58 06:35 06:35 WBC 5.8 RBC 4.28 L Hgb 12.6 L Hct 36.6 L MCV 86 MCH 29.4 MCHC 34.4 RDW 13.2 Plt Count 238 Seg Neutrophils % 65.1 Lymphocytes % 22.1 Monocytes % 8.8 Eosinophils % 2.7 Basophils % 1.3 Absolute Neutrophils 3.7 Absolute Lymphocytes 1.3 Absolute Monocytes 0.5 Absolute Eosinophils 0.2 Absolute Basophils 0.1 Sodium 138.1 Potassium 4.0 Chloride 102 Carbon Dioxide 27 Anion Gap 9 BUN 12 Creatinine 0.55 0.55 Est GFR ( Amer) > 60 > 60 Est GFR (Non-Af Amer) > 60 > 60 Glucose 277 H Calcium 8.4 Impressions: Foot X-Ray 12/01/17 20:21 IMPRESSION: SOFT TISSUE SWELLING 1ST TOE WITH POSSIBLE ULCER. NO ACUTE OSSEOUS ABNORMALITY. Assessment & Plan - Diagnosis (1) Diabetic infection of right foot Is this a current diagnosis for this admission?: Yes Plan: Patient is hospital day 3, grossly infected right great toe, status post operative debridement, intravenous antibiotics; growing group C beta-hemolytic strep recommendations: 1. Right great toe remains seriously infected with purulent discharge. It needs to be amputated partially if not completely. The indications are to control sepsis in the right foot which has not been achieved despite the interventions for the past 2 days. Patient is very reluctant to undergo additional surgery, and concerned about losing his toe. I explained that if he does not have surgery today, he will have infection progressing up his foot which may require a portion of his distal foot removed. 2. We will set him up for right great toe removal, partial versus complete, leaving the wound open at this time. (2) Morbid obesity with BMI of 40.0-44.9, adult Is this a current diagnosis for this admission?: Yes (3) Newly diagnosed diabetes Is this a current diagnosis for this admission?: Yes
--- NOTE | 2017-12-04 09:50 | PDOC PROGRESS REPORT ---
Subjective Progress Note for:: 12/04/17 Subjective:: The patient is a 37-year-old male with past medical history of morbid obesity ( previously super morbid obesity; has lost approximately 200 pounds) who was admitted on 12/01/17 for diabetic wound to right great. Patient is seen on morning rounds. The patient is upset today; surgery has informed him that the patient will require a partial versus complete amputation of his right great toe due to continued purulent drainage at the previous debridement site. The patient states that he understands the recommendations and is agreeable to the procedure. We briefly discussed his elevated blood sugars; patient was not receptive at this time as he remains frustrated by need for amputation. He is informed that we intend to increase his long-acting insulin tonight. He has no other questions or concerns at this time. Reason For Visit: DIABETES,TOE ULCER Physical Exam Vital Signs: Temp Pulse Resp BP Pulse Ox 97.6 F 85 18 129/72 H 97 12/04/17 08:00 12/04/17 08:00 12/04/17 08:00 12/04/17 08:00 12/04/17 08:00 Intake & Output 12/03/17 12/04/17 12/05/17 06:59 06:59 06:59 Intake Total 4588 1910 Output Total 10 Balance 4578 1910 Weight 135 kg 135.2 kg General appearance: PRESENT: no acute distress, morbidly obese, well-developed, well-nourished Head exam: PRESENT: atraumatic, normocephalic Eye exam: PRESENT: conjunctiva pink, EOMI, PERRLA. ABSENT: scleral icterus Mouth exam: PRESENT: moist, tongue midline Neck exam: ABSENT: carotid bruit, JVD, lymphadenopathy, thyromegaly Respiratory exam: PRESENT: clear to auscultation cinthia. ABSENT: rales, rhonchi, wheezes Cardiovascular exam: PRESENT: RRR. ABSENT: diastolic murmur, rubs, systolic murmur Pulses: PRESENT: normal dorsalis pedis pul Vascular exam: PRESENT: normal capillary refill GI/Abdominal exam: PRESENT: normal bowel sounds, soft. ABSENT: distended, guarding, mass, organolmegaly, rebound, tenderness Rectal exam: PRESENT: deferred Extremities exam: PRESENT: full ROM. ABSENT: calf tenderness, clubbing, pedal edema Neurological exam: PRESENT: alert, awake, oriented to person, oriented to place , oriented to time, oriented to situation, CN II-XII grossly intact. ABSENT: motor sensory deficit Psychiatric exam: PRESENT: agitated, appropriate affect, normal mood. ABSENT: homicidal ideation, suicidal ideation Skin exam: PRESENT: dry, warm, other - Right great toe not visualized; clean dry dressing is in place.. ABSENT: cyanosis, rash Results Laboratory Results: 12/04/17 06:35 12/04/17 06:35 12/03/17 12/04/17 12/04/17 08:58 06:35 06:35 WBC 5.8 RBC 4.28 L Hgb 12.6 L Hct 36.6 L MCV 86 MCH 29.4 MCHC 34.4 RDW 13.2 Plt Count 238 Seg Neutrophils % 65.1 Lymphocytes % 22.1 Monocytes % 8.8 Eosinophils % 2.7 Basophils % 1.3 Absolute Neutrophils 3.7 Absolute Lymphocytes 1.3 Absolute Monocytes 0.5 Absolute Eosinophils 0.2 Absolute Basophils 0.1 Sodium 138.1 Potassium 4.0 Chloride 102 Carbon Dioxide 27 Anion Gap 9 BUN 12 Creatinine 0.55 0.55 Est GFR ( Amer) > 60 > 60 Est GFR (Non-Af Amer) > 60 > 60 Glucose 277 H Calcium 8.4 12/02/17 10:18 Toe - Right First Gram Stain - Final Impressions: Foot X-Ray 12/01/17 20:21 IMPRESSION: SOFT TISSUE SWELLING 1ST TOE WITH POSSIBLE ULCER. NO ACUTE OSSEOUS ABNORMALITY. Assessment & Plan - Diagnosis (1) Diabetic infection of right foot Is this a current diagnosis for this admission?: Yes Plan: The patient was admitted to the medical floor. Blood cultures have no growth to date. Wound cultures reveal Group B & C betastreptococcus and gram-positive cocci He has been empirically placed on IV vancomycin and cefepime. Surgery has been consulted; appreciate their expert assistance. Planned right great toe amputation today. Wound care per their recommendations. (2) Newly diagnosed diabetes Is this a current diagnosis for this admission?: Yes Plan: Hemoglobin A1c 11.7%. Fasting blood glucose remained elevated (> 250). Patient is placed on a consistent carb diet. Accu-Cheks before meals and at bedtime with Humalog for sliding scale coverage. Given his elevated A1c and diabetic foot wound; will treat new onset diabetes aggressively with long acting insulin. Increase to Lantus 12 units nightly. We will ask the critical care educator and registered dietitian to meet with the patient. We will ask the discharge planners to evaluate for needs; patient may benefit from home health nursing for disease management and education. (3) Hypertension Is this a current diagnosis for this admission?: Yes Plan: Improved following initiation of lisinopril. Continue lisinopril 5 mg daily. IV hydralazine as needed for blood pressure control. (4) Morbid obesity with BMI of 40.0-44.9, adult Is this a current diagnosis for this admission?: Yes Plan: Dietary discretion is advised. The critical care educator and registered dietitian have been consulted. (5) Leukocytosis Qualifiers: Leukocytosis type: unspecified Qualified Code(s): D72.829 - Elevated white blood cell count, unspecified Is this a current diagnosis for this admission?: Yes Plan: Resolved; secondary to #1.
[2017-12-04] MEDS: DOCUSATE SODIUM 100 MG CAPSULE PO SCH ×2 (10:27→18:25)
[2017-12-04] MEDS: LISINOPRIL 5 MG TABLET PO SCH (10:27)
[2017-12-04] MEDS: MULTIVITAMIN TABLET PO SCH (10:27)
[2017-12-04] MEDS: CEFEPIME 1 GM/D5W RTU 1 GM/50 ML RTUPB IV SCH ×2 (10:28→23:44)
[2017-12-04] MEDS ORDERED: LIDOCAINE 1% INJ-PF (10 MG/ML) 30 ML SDV ONE (14:05)
[2017-12-04 14:24] LABS: VANCOMYCIN,TROUGH 15.5 ug/mL (5.0-20.0)
[2017-12-04] MEDS ORDERED: FENTANYL CITRATE INJ/PF 100 MCG/2 ML AMPUL ONE ×2 (14:31)
[2017-12-04] MEDS ORDERED: MIDAZOLAM 2 MG/2 ML INJ ONE (14:31)
[2017-12-04] MEDS ORDERED: PROPOFOL INJ 200 MG/20 ML VIAL IV ONE (14:32)
[2017-12-04] MEDS ORDERED: PROMETHAZINE HCL INJ 25 MG/1 ML VIAL IV PRN (15:19)
[2017-12-04] MEDS ORDERED: DIPHENHYDRAMINE HCL 50 MG/ML VIAL IV PRN (15:19)
[2017-12-04] MEDS ORDERED: FENTANYL CITRATE INJ/PF 100 MCG/2 ML AMPUL IV PRN ×3 (15:19)
--- NOTE | 2017-12-04 15:48 | Operative Report ---
Nonrecallable Operative Report DATE OF SURGERY: 12/04/17 PREOPERATIVE DIAGNOSIS: Septic diabetic right great toe status post debridement POSTOPERATIVE DIAGNOSIS: Same OPERATION: Amputation of right great toe including proximal head of first phalanges, partial closure of wound for DPC SURGEON: ANURADHA CASTREJON ANESTHESIA: GA TISSUE REMOVED OR ALTERED: Right great toe COMPLICATIONS: None ESTIMATED BLOOD LOSS: Scant INTRAOPERATIVE FINDINGS: See below PROCEDURE: The patient was seen in the preop holding area, then taken to the main operating room and general anesthesia was induced. Right foot was exposed, distal aspect prepped and draped sterile fashion. Surgical plan surgical timeout were conducted. Findings are significant for pus emanating from the plantar surface of the right great toe at the site of previous debridement, as well as pus emanating from the ventral surface of the toe at the site of previous nail extraction. The toe was amputated approximately 1 cm distal to the webspace using a #10 blade, and a circumferential fashion. Deep tissue was divided with knife, and the toe amputated across the distal phalanx. Using a combination of Torsten clamp, and elevators, the proximal fragment of the phalanx was disarticulated from the proximal bone. We now used the bone Bland to read the cartilaginous surfaces of the proximal phalanx. This point there was no evidence of pus foul smell or any drainage from the deep wound. Skin edges bled briskly. Medial digital artery and vein were cauterized for control. I felt that a delayed primary closure approach to this wound was appropriate given the group C beta hemolytic strep growing from the wound. After irrigating the wound cavity multiple times with saline, I placed a small Betadine soaked piece of gauze in the recesses of the wound. Placed 6 interrupted vertical mattress sutures, 3-0 Ethilon, in a transverse fashion, mating each suture and to itself with a very strep. We addressed the foot with 4 x 4's between the toes, Xeroform over the open transected clean surface of the in at the site of the amputation, more 4 x 4's applied and a Xeroform Kerlix applied. Patient tolerated procedure well. We taken recovery in stable condition. Plan: Suspect wound daily; infection persist, DPC sutures should be removed. Conversely, if wound looks good on postoperative day 2-3, gauze packing underneath the DPC sutures must be removed, and the sutures pulled snug, and knots tied thereby closing this wound transversely.
--- NOTE | 2017-12-04 16:22 | XCELERA REPORT ---
[address] [address] Lower Extremity Arterial Evaluation Name: SVETA HAYES Age: 37 yrs Gender: Male : 1980 Patient Status: Inpatient Patient Location: [address] [place], [place] [id number] Study Date: 12/04/2017 10:28 AM Procedure: A color flow and duplex scan of the lower extremity arteries was performed bilaterally with velocity and waveform anaylsis. Reason For Study: diabetic foot infect, decr pulses. Need TREVOR's also Ordering Physician: YUE ALAMO Performed By: Elmer Agrawal Measurements and Calculations Right Left [employer] PSV 130.1 123.4 cm/sec Prox PFA PSV 101.2 86.4 cm/sec Prox SFA PSV 110.6 111.6 cm/sec Mid SFA PSV -111.3 -98.7 cm/sec Dist SFA PSV -92.3 -63.3 cm/sec Prox Pop A PSV 96.7 65.2 cm/sec Dist GABRIEL PSV 62.9 55.5 cm/sec Dist [employer] PSV 102.6 101.5 cm/sec Satish Pedis PSV 52.2 cm/sec Right Side Waveforms Normal velocity and triphasic waveforms noted from the Common Femoral artery to the infrageniculate vessels. Dorsalis Pedis covered with bandages. 0 % stenosis noted. Ankle Brachial index not done due to bandages. Right Side Arterial Evaluation Normal velocity and triphasic waveforms noted from the Common Femoral artery to the infrageniculate. 0 % stenosis noted. Ankle Brachial index was not done .. Interpretation Summary No hemodynamically significant lesions in the bilateral lower extremities, on duplex imaging, at rest. : YUE ALAMO > Dick Piper
[2017-12-04] MEDS ORDERED: INSULIN GLARGINE,HUM.REC.ANLOG 300 UNIT/3 ML INSULN.PEN SUBCUT ONE (22:52)
[2017-12-04] MEDS: INSULIN GLARGINE,HUM.REC.ANLOG 300 UNIT/3 ML INSULN.PEN SUBCUT SCH (23:45)
[2017-12-05] MEDS: VANCOMYCIN HCL 2,000 MG in DEXTROSE 5%-WATER 500 ML IV SCH ×4 (00:37→23:04)
[2017-12-05] MEDS: KETOROLAC TROMETHAMINE INJ/PF 30 MG/1 ML SDV IV PRN (00:38)
[2017-12-05 07:33] LABS: HEMATOCRIT 37.1 % (37.9-51.0); HEMOGLOBIN 12.6 g/dL (13.5-17.0); MEAN CORPUSCULAR HEMOGLOBIN 29.3 pg (27.0-33.4); MEAN CORPUSCULAR HGB CONC 34.1 g/dL (32.0-36.0); MEAN CORPUSCULAR VOLUME 86 fl (80-97); PLATELET COUNT 258 10^3/uL (150-450); RED BLOOD COUNT 4.31 10^6/uL (4.35-5.55); RED CELL DISTRIBUTION WIDTH 13.2 % (11.5-14.0); WHITE BLOOD COUNT 5.8 10^3/uL (4.0-10.5)
[2017-12-05 07:57] LABS: ANION GAP 8 (5-19); BLOOD UREA NITROGEN 10 mg/dL (7-20); CALCIUM 8.7 mg/dL (8.4-10.2); CARBON DIOXIDE 29 mmol/L (22-30); CHLORIDE 104 mmol/L (98-107); GLUCOSE 203 mg/dL (75-110); POTASSIUM 4.1 mmol/L (3.6-5.0); SODIUM 140.6 mmol/L (137-145)
[2017-12-05] MEDS: HEPARIN SOD (PORCINE) 5,000 UNIT/ML 1 ML SYRINGE SUBCUT SCH ×3 (08:38→23:04)
[2017-12-05] MEDS: CEFEPIME 1 GM/D5W RTU 1 GM/50 ML RTUPB IV SCH (09:57)
[2017-12-05] MEDS: MULTIVITAMIN TABLET PO SCH (09:57)
[2017-12-05] MEDS: INSULIN LISPRO 100 UNIT/ML 3 ML VIAL SUBCUT PRN ×4 (09:57→23:05)
[2017-12-05] MEDS: LISINOPRIL 5 MG TABLET PO SCH (09:57)
[2017-12-05] MEDS: DOCUSATE SODIUM 100 MG CAPSULE PO SCH ×2 (09:57→17:44)
--- NOTE | 2017-12-05 11:37 | PDOC PROGRESS REPORT ---
Subjective Progress Note for:: 12/05/17 Subjective:: Feels well. No complaints. Reason For Visit: DIABETES,TOE ULCER Physical Exam Vital Signs: Temp Pulse Resp BP Pulse Ox 98.2 F 87 20 141/94 H 97 12/05/17 07:35 12/05/17 07:35 12/05/17 07:35 12/05/17 07:35 12/05/17 07:35 Intake & Output 12/04/17 12/05/17 12/06/17 06:59 06:59 06:59 Intake Total 1910 1540 Output Total 270 Balance 1910 1270 Weight 135.2 kg 136 kg General appearance: PRESENT: no acute distress, cooperative Extremities exam: PRESENT: other - Great toe amputation site looks very clean there is surrounding erythema but no drainage. The packing was removed. Repack with normal saline wet-to-dry. Results Laboratory Results: 12/05/17 07:05 12/05/17 07:05 12/04/17 12/05/17 12/05/17 13:45 07:05 07:05 WBC 5.8 RBC 4.31 L Hgb 12.6 L Hct 37.1 L MCV 86 MCH 29.3 MCHC 34.1 RDW 13.2 Plt Count 258 Sodium 140.6 Potassium 4.1 Chloride 104 Carbon Dioxide 29 Anion Gap 8 BUN 10 Creatinine 0.48 L 0.68 Est GFR ( Amer) > 60 > 60 Est GFR (Non-Af Amer) > 60 > 60 Glucose 203 H Calcium 8.7 12/02/17 10:18 Toe - Right First Gram Stain - Final 12/02/17 10:18 Toe - Right First Gram Stain - Final 12/02/17 10:18 Toe - Right First Wound Culture - Final Staphylococcus Aureus Pseudomonas Aeruginosa Group C Beta Streptococcus Group B Beta Streptococcus Peptostreptococcus Species Prevotella Species Impressions: Foot X-Ray 12/01/17 20:21 IMPRESSION: SOFT TISSUE SWELLING 1ST TOE WITH POSSIBLE ULCER. NO ACUTE OSSEOUS ABNORMALITY. Assessment & Plan - Diagnosis (1) Diabetic infection of right foot Is this a current diagnosis for this admission?: Yes Plan: Status post partial great toe amputation. The wound looks very good. Local wound care will be started. Will plan delay closure in the next several days.
[2017-12-05] MEDS ORDERED: LIDOCAINE 2% INJ-PF (20 MG/ML) 2 ML AMPUL ONE (12:08)
[2017-12-05] MEDS ORDERED: SUCCINYLCHOLINE CHLORIDE INJ 200 MG/10 ML VIAL ONE (12:08)
--- NOTE | 2017-12-05 12:48 | PDOC PROGRESS REPORT ---
Subjective Progress Note for:: 12/05/17 Subjective:: this 37-year-old gentleman admitted with right toe cellulitis status post amputation of the right toe. His cultures are yielding multiple organisms including Staphylococcus aureus, Pseudomonas, group B and C beta Streptococcus, Peptostreptococcus as well as Prevotella. Patient's antibiotic was changed to Primaxin and he continues on the vancomycin for now. He has a dressing was changed and the wound was reviewed by the surgeon today. His blood sugars have been elevated understandably due to his acute infection Reason For Visit: DIABETES,TOE ULCER Physical Exam Vital Signs: Temp Pulse Resp BP Pulse Ox 98.2 F 87 20 141/94 H 97 12/05/17 07:35 12/05/17 07:35 12/05/17 07:35 12/05/17 07:35 12/05/17 07:35 Intake & Output 12/04/17 12/05/17 12/06/17 06:59 06:59 06:59 Intake Total 1910 1540 Output Total 270 Balance 1910 1270 Weight 135.2 kg 136 kg General appearance: PRESENT: no acute distress, well-developed, well-nourished Head exam: PRESENT: atraumatic, normocephalic Eye exam: PRESENT: conjunctiva pink, EOMI, PERRLA. ABSENT: scleral icterus Ear exam: PRESENT: normal external ear exam Mouth exam: PRESENT: moist, tongue midline Neck exam: ABSENT: carotid bruit, JVD, lymphadenopathy, thyromegaly Respiratory exam: PRESENT: clear to auscultation cinthia. ABSENT: rales, rhonchi, wheezes Cardiovascular exam: PRESENT: RRR. ABSENT: diastolic murmur, rubs, systolic murmur Pulses: PRESENT: normal dorsalis pedis pul Vascular exam: PRESENT: normal capillary refill GI/Abdominal exam: PRESENT: normal bowel sounds, soft. ABSENT: distended, guarding, mass, organolmegaly, rebound, tenderness Rectal exam: PRESENT: deferred Extremities exam: PRESENT: full ROM. ABSENT: calf tenderness, clubbing, pedal edema Musculoskeletal exam: PRESENT: other - Dressing R foot Neurological exam: PRESENT: alert, awake, oriented to person, oriented to place , oriented to time, oriented to situation, CN II-XII grossly intact. ABSENT: motor sensory deficit Psychiatric exam: PRESENT: appropriate affect, normal mood. ABSENT: homicidal ideation, suicidal ideation Skin exam: PRESENT: dry, warm, other - post op changes R 1st toe. ABSENT: cyanosis, rash Results Laboratory Results: 12/05/17 07:05 12/05/17 07:05 12/04/17 12/05/17 12/05/17 13:45 07:05 07:05 WBC 5.8 RBC 4.31 L Hgb 12.6 L Hct 37.1 L MCV 86 MCH 29.3 MCHC 34.1 RDW 13.2 Plt Count 258 Sodium 140.6 Potassium 4.1 Chloride 104 Carbon Dioxide 29 Anion Gap 8 BUN 10 Creatinine 0.48 L 0.68 Est GFR ( Amer) > 60 > 60 Est GFR (Non-Af Amer) > 60 > 60 Glucose 203 H Calcium 8.7 12/02/17 10:18 Toe - Right First Gram Stain - Final 12/02/17 10:18 Toe - Right First Gram Stain - Final 12/02/17 10:18 Toe - Right First Wound Culture - Final Staphylococcus Aureus Pseudomonas Aeruginosa Group C Beta Streptococcus Group B Beta Streptococcus Peptostreptococcus Species Prevotella Species Impressions: Foot X-Ray 12/01/17 20:21 IMPRESSION: SOFT TISSUE SWELLING 1ST TOE WITH POSSIBLE ULCER. NO ACUTE OSSEOUS ABNORMALITY. Assessment & Plan - Time Time Spent with patient: 15-24 minutes Medications reviewed and adjusted accordingly: Yes Anticipated discharge: Home with Homehealth Within: within 72 hours Disposition: 1.Diabetic infection of the right foot status post amputation of the right great toe. Will continue current antibiotics for now and de-escalate as appropriate 2. Newly diagnosed diabetes mellitus with hemoglobin A1c of 11.7. Will continue to adjust his insulin as required. A extension educator will and dietitian have been requested 3. Hypertension we will continue with the lisinopril 4. Morbid obesity with a BMI of 40. Patient encouraged to lose weight 5. Leukocytosis likely secondary to acute infection resolved - Inpatient Certification Based on my medical assessment, after consideration of the patient's comorbidities, presenting symptoms, or acuity I expect that the services needed warrant INPATIENT care.: Yes Medical Necessity: Need for IV Antibiotics
[2017-12-05] MEDS: IMIPENEM/CILASTATIN SODIUM 500 MG in NORMAL SALINE 100 ML IV SCH ×2 (13:36→17:35)
[2017-12-05] MEDS: INSULIN GLARGINE,HUM.REC.ANLOG 300 UNIT/3 ML INSULN.PEN SUBCUT SCH (23:05)
[2017-12-06] MEDS: IMIPENEM/CILASTATIN SODIUM 500 MG in NORMAL SALINE 100 ML IV SCH ×4 (02:03→17:37)
[2017-12-06] MEDS: HEPARIN SOD (PORCINE) 5,000 UNIT/ML 1 ML SYRINGE SUBCUT SCH ×3 (06:18→22:00)
[2017-12-06] MEDS: VANCOMYCIN HCL 2,000 MG in DEXTROSE 5%-WATER 500 ML IV SCH (06:18)
[2017-12-06] MEDS: INSULIN LISPRO 100 UNIT/ML 3 ML VIAL SUBCUT PRN ×4 (08:39→21:59)
[2017-12-06] MEDS: LISINOPRIL 5 MG TABLET PO SCH (08:39)
[2017-12-06] MEDS: MULTIVITAMIN TABLET PO SCH (08:40)
[2017-12-06] MEDS: DOCUSATE SODIUM 100 MG CAPSULE PO SCH ×2 (08:40→17:36)
--- NOTE | 2017-12-06 13:42 | PDOC PROGRESS REPORT ---
Subjective Progress Note for:: 12/06/17 Subjective:: this 37-year-old gentleman admitted with right toe cellulitis status post amputation of the right toe. His cultures are yielding multiple organisms including Staphylococcus aureus, Pseudomonas, group B and C beta Streptococcus, Peptostreptococcus as well as Prevotella. Patient's antibiotic was changed to Primaxin and he continues on the vancomycin for now. He has a dressing was changed and the wound was reviewed by the surgeon today. His blood sugars have been elevated understandably due to his acute infection. He has been on 10 units Lantus with BS in the 200 range Reason For Visit: DIABETES,TOE ULCER Physical Exam Vital Signs: Temp Pulse Resp BP Pulse Ox 98.4 F 89 18 140/86 H 96 12/06/17 07:48 12/06/17 07:48 12/06/17 07:48 12/06/17 07:48 12/06/17 07:48 Intake & Output 12/05/17 12/06/17 12/07/17 06:59 06:59 06:59 Intake Total 1540 Output Total 270 Balance 1270 Weight 136 kg 136 kg General appearance: PRESENT: no acute distress, well-developed, well-nourished Head exam: PRESENT: atraumatic, normocephalic Eye exam: PRESENT: conjunctiva pink, EOMI, PERRLA. ABSENT: scleral icterus Ear exam: PRESENT: normal external ear exam Mouth exam: PRESENT: moist, tongue midline Neck exam: ABSENT: carotid bruit, JVD, lymphadenopathy, thyromegaly Respiratory exam: PRESENT: clear to auscultation cinthia. ABSENT: rales, rhonchi, wheezes Cardiovascular exam: PRESENT: RRR. ABSENT: diastolic murmur, rubs, systolic murmur Pulses: PRESENT: normal dorsalis pedis pul Vascular exam: PRESENT: normal capillary refill GI/Abdominal exam: PRESENT: normal bowel sounds, soft. ABSENT: distended, guarding, mass, organolmegaly, rebound, tenderness Rectal exam: PRESENT: deferred Extremities exam: PRESENT: other - R foot covered in bandage, able to wiggle toes. ABSENT: calf tenderness, clubbing, pedal edema Neurological exam: PRESENT: alert, awake, oriented to person, oriented to place , oriented to time, oriented to situation, CN II-XII grossly intact. ABSENT: motor sensory deficit Psychiatric exam: PRESENT: appropriate affect, normal mood. ABSENT: homicidal ideation, suicidal ideation Skin exam: PRESENT: dry, intact, warm. ABSENT: cyanosis, rash Results Laboratory Results: 12/05/17 07:05 12/05/17 07:05 12/02/17 10:18 Toe - Right First Gram Stain - Final 12/02/17 10:18 Toe - Right First Gram Stain - Final 12/02/17 10:18 Toe - Right First Wound Culture - Final Staphylococcus Aureus Pseudomonas Aeruginosa Group C Beta Streptococcus Group B Beta Streptococcus Peptostreptococcus Species Prevotella Species Impressions: Foot X-Ray 12/01/17 20:21 IMPRESSION: SOFT TISSUE SWELLING 1ST TOE WITH POSSIBLE ULCER. NO ACUTE OSSEOUS ABNORMALITY. Assessment & Plan - Time Time Spent with patient: 15-24 minutes Medications reviewed and adjusted accordingly: Yes Anticipated discharge: Home Within: within 72 hours - Inpatient Certification Based on my medical assessment, after consideration of the patient's comorbidities, presenting symptoms, or acuity I expect that the services needed warrant INPATIENT care.: Yes Medical Necessity: Need for IV Antibiotics, Need for Surgery - Plan Summary Plan Summary: 1.Diabetic infection of the right foot status post amputation of the right great toe. DC Vancomycin as Staph growing is MSSA 2. Newly diagnosed diabetes mellitus with hemoglobin A1c of 11.7. Increase Lantus and continue to adjust his insulin as required. A asthma educator and dietitian have been consulted 3. Hypertension - will continue with the lisinopril 4. Morbid obesity with a BMI of 40. Patient encouraged to lose weight 5. Leukocytosis likely secondary to acute infection resolved
--- NOTE | 2017-12-06 21:20 | PDOC PROGRESS REPORT ---
Subjective Progress Note for:: 12/06/17 Reason For Visit: DIABETES,TOE ULCER Physical Exam Vital Signs: Temp Pulse Resp BP Pulse Ox 98.4 F 97 18 145/96 H 98 12/06/17 16:45 12/06/17 16:45 12/06/17 16:45 12/06/17 16:45 12/06/17 16:45 Intake & Output 12/05/17 12/06/17 12/07/17 06:59 06:59 06:59 Intake Total 1540 300 Output Total 270 5 Balance 1270 295 Weight 136 kg 136 kg Results Laboratory Results: 12/05/17 07:05 12/05/17 07:05 12/02/17 10:18 Toe - Right First Gram Stain - Final 12/02/17 10:18 Toe - Right First Wound Culture - Final Staphylococcus Aureus Group C Beta Streptococcus Group B Beta Streptococcus Peptostreptococcus Species Prevotella Species Impressions: Foot X-Ray 12/01/17 20:21 IMPRESSION: SOFT TISSUE SWELLING 1ST TOE WITH POSSIBLE ULCER. NO ACUTE OSSEOUS ABNORMALITY. Assessment & Plan - Diagnosis (1) Diabetic infection of right foot Is this a current diagnosis for this admission?: Yes - Plan Summary Plan Summary: This is a 37-year-old male status post right great toe amputation. Wound is open. There is no purulence. There is good granulation tissue present. I have removed the packing at bedside today. The dressing was changed and new packing was inserted. Plan for delayed primary closure postop day 5.
[2017-12-06] MEDS: INSULIN GLARGINE,HUM.REC.ANLOG 300 UNIT/3 ML INSULN.PEN SUBCUT SCH (21:59)
[2017-12-06] MEDS: KETOROLAC TROMETHAMINE INJ/PF 30 MG/1 ML SDV IV PRN (21:59)
[2017-12-07] MEDS: IMIPENEM/CILASTATIN SODIUM 500 MG in NORMAL SALINE 100 ML IV SCH ×5 (00:58→23:55)
[2017-12-07] MEDS: HEPARIN SOD (PORCINE) 5,000 UNIT/ML 1 ML SYRINGE SUBCUT SCH ×3 (06:26→21:58)
--- NOTE | 2017-12-07 08:37 | PDOC PROGRESS REPORT ---
Subjective Progress Note for:: 12/07/17 Subjective:: Feels well. No complaints. Reason For Visit: DIABETES,TOE ULCER Physical Exam Vital Signs: Temp Pulse Resp BP Pulse Ox 98.6 F 88 18 131/74 H 97 12/07/17 03:57 12/07/17 03:57 12/07/17 03:57 12/07/17 03:57 12/07/17 03:57 Intake & Output 12/06/17 12/07/17 12/08/17 06:59 06:59 06:59 Intake Total 300 Output Total 5 Balance 295 Weight 136 kg 136 kg Extremities exam: PRESENT: other - Amputation site looks very clean with no drainage no erythema. Results Laboratory Results: 12/05/17 07:05 12/05/17 07:05 12/01/17 23:31 Blood Blood Culture - Final NO GROWTH IN 5 DAYS 12/02/17 10:18 Toe - Right First Gram Stain - Final 12/02/17 10:18 Toe - Right First Wound Culture - Final Staphylococcus Aureus Group C Beta Streptococcus Group B Beta Streptococcus Peptostreptococcus Species Prevotella Species Impressions: Foot X-Ray 12/01/17 20:21 IMPRESSION: SOFT TISSUE SWELLING 1ST TOE WITH POSSIBLE ULCER. NO ACUTE OSSEOUS ABNORMALITY. Assessment & Plan - Diagnosis (1) Diabetic infection of right foot Is this a current diagnosis for this admission?: Yes Plan: Status post partial great toe amputation. The wound looks very good. Will plan delay closure in couple more days.
[2017-12-07] MEDS: DOCUSATE SODIUM 100 MG CAPSULE PO SCH ×2 (08:56→17:33)
[2017-12-07] MEDS: MULTIVITAMIN TABLET PO SCH (08:57)
[2017-12-07] MEDS: LISINOPRIL 5 MG TABLET PO SCH (08:57)
[2017-12-07] MEDS: INSULIN LISPRO 100 UNIT/ML 3 ML VIAL SUBCUT PRN ×3 (12:31→21:58)
--- NOTE | 2017-12-07 13:06 | PDOC PROGRESS REPORT ---
Subjective Progress Note for:: 12/07/17 Subjective:: this 37-year-old gentleman admitted with right toe cellulitis status post amputation of the right toe. His cultures are yielding multiple organisms including Staphylococcus aureus, Pseudomonas, group B and C beta Streptococcus, Peptostreptococcus as well as Prevotella. Patient's antibiotic was changed to Primaxin and he continues on the vancomycin for now. He has a dressing was changed and the wound was reviewed by the surgeon today. His blood sugars have been elevated understandably due to his acute infection. He has been on 10 units Lantus with BS in the 200 range. BS a little better today with increase Lantus. Reason For Visit: DIABETES,TOE ULCER Physical Exam Vital Signs: Temp Pulse Resp BP Pulse Ox 98.6 F 86 18 150/94 H 96 12/07/17 11:14 12/07/17 11:14 12/07/17 11:14 12/07/17 11:14 12/07/17 11:14 Intake & Output 12/06/17 12/07/17 12/08/17 06:59 06:59 06:59 Intake Total 300 480 Output Total 5 Balance 295 480 Weight 136 kg 136 kg General appearance: PRESENT: no acute distress, well-developed, well-nourished Head exam: PRESENT: atraumatic, normocephalic Eye exam: PRESENT: conjunctiva pink, EOMI, PERRLA. ABSENT: scleral icterus Ear exam: PRESENT: normal external ear exam Mouth exam: PRESENT: moist, tongue midline Neck exam: ABSENT: carotid bruit, JVD, lymphadenopathy, thyromegaly Respiratory exam: PRESENT: clear to auscultation cinthia. ABSENT: rales, rhonchi, wheezes Cardiovascular exam: PRESENT: RRR. ABSENT: diastolic murmur, rubs, systolic murmur Pulses: PRESENT: normal dorsalis pedis pul Vascular exam: PRESENT: normal capillary refill GI/Abdominal exam: PRESENT: normal bowel sounds, soft. ABSENT: distended, guarding, mass, organolmegaly, rebound, tenderness Rectal exam: PRESENT: deferred Extremities exam: PRESENT: full ROM, other - R foot covered with dressing. ABSENT: calf tenderness, clubbing, pedal edema Neurological exam: PRESENT: alert, awake, oriented to person, oriented to place , oriented to time, oriented to situation, CN II-XII grossly intact. ABSENT: motor sensory deficit Psychiatric exam: PRESENT: appropriate affect, normal mood. ABSENT: homicidal ideation, suicidal ideation Skin exam: PRESENT: dry, intact, warm. ABSENT: cyanosis, rash Results Laboratory Results: 12/05/17 07:05 12/05/17 07:05 12/01/17 23:31 Blood Blood Culture - Final NO GROWTH IN 5 DAYS 12/02/17 10:18 Toe - Right First Gram Stain - Final 12/02/17 10:18 Toe - Right First Wound Culture - Final Staphylococcus Aureus Group C Beta Streptococcus Group B Beta Streptococcus Peptostreptococcus Species Prevotella Species Impressions: Foot X-Ray 12/01/17 20:21 IMPRESSION: SOFT TISSUE SWELLING 1ST TOE WITH POSSIBLE ULCER. NO ACUTE OSSEOUS ABNORMALITY. Assessment & Plan - Plan Summary Plan Summary: 1.Diabetic infection of the right foot status post amputation of the right great toe. Delay wound closure planned for a few days as per surgery 2. Newly diagnosed diabetes mellitus with hemoglobin A1c of 11.7. Continue Lantus and continue to adjust his insulin as required. A clinical educator and dietitian have been consulted 3. Hypertension - will continue with the lisinopril 4. Morbid obesity with a BMI of 40. Patient encouraged to lose weight 5. Leukocytosis likely secondary to acute infection resolved
[2017-12-07] MEDS: INSULIN GLARGINE,HUM.REC.ANLOG 300 UNIT/3 ML INSULN.PEN SUBCUT SCH (21:58)
[2017-12-08] MEDS: ACETAMINOPHEN 325 MG TABLET PO PRN (00:01)
[2017-12-08] MEDS: HEPARIN SOD (PORCINE) 5,000 UNIT/ML 1 ML SYRINGE SUBCUT SCH ×3 (06:49→22:26)
[2017-12-08] MEDS: IMIPENEM/CILASTATIN SODIUM 500 MG in NORMAL SALINE 100 ML IV SCH ×4 (06:49→23:56)
[2017-12-08] MEDS: INSULIN LISPRO 100 UNIT/ML 3 ML VIAL SUBCUT PRN ×4 (07:58→22:32)
--- NOTE | 2017-12-08 09:41 | PDOC PROGRESS REPORT ---
Subjective Progress Note for:: 12/08/17 Subjective:: Patient has no focal complaints. Reason For Visit: DIABETES,TOE ULCER Physical Exam Vital Signs: Temp Pulse Resp BP Pulse Ox 98.1 F 79 18 144/94 H 98 12/08/17 07:47 12/08/17 07:47 12/08/17 07:47 12/08/17 07:47 12/08/17 07:47 Intake & Output 12/07/17 12/08/17 12/09/17 06:59 06:59 06:59 Intake Total 300 1880 Output Total 5 Balance 295 1880 Weight 136 kg 137.4 kg General appearance: PRESENT: no acute distress Musculoskeletal exam: PRESENT: other - Dressing removed; DPC sutures in place; there is no foul smell, drainage, purulence; erythema to the foot resolved. Results Laboratory Results: 12/05/17 07:05 12/05/17 07:05 Impressions: Foot X-Ray 12/01/17 20:21 IMPRESSION: SOFT TISSUE SWELLING 1ST TOE WITH POSSIBLE ULCER. NO ACUTE OSSEOUS ABNORMALITY. Assessment & Plan - Diagnosis (1) Diabetic infection of right foot Is this a current diagnosis for this admission?: Yes Plan: Patient is 4 days status post right toe amputation for polymicrobial infection, wound cleaning up nicely. No clinical indication for further debridement Recommendations: 1. Patient has a complex soft tissue infection growing Peptostreptococcus, Staphylococcus, Streptococcus, Pseudomonas and Prevotella species. Furthermore his pathology report came back showing acute osteomyelitis of the debrided bone.\ 2. Given his history of non-awareness, diabetes mellitus, and serious soft tissue and bone infection, I prefer to manage this wound using VAC therapy. We have ordered this for today and activated discharge planning and home health to assist with discharge plans once patient's acute care needs have been met 3. Continue intravenous antibiotics today; patient may need PICC line and home intravenous antibiotics (2) Morbid obesity with BMI of 40.0-44.9, adult Is this a current diagnosis for this admission?: Yes (3) Newly diagnosed diabetes Is this a current diagnosis for this admission?: Yes - Time Time Spent with patient: 15-24 minutes Smoking Cessation Education: over 10 minutes
[2017-12-08] MEDS ORDERED: DOCUSATE SODIUM 100 MG CAPSULE PO SCH (10:00)
[2017-12-08] MEDS: DOCUSATE SODIUM 100 MG CAPSULE PO SCH ×2 (10:06→17:41)
[2017-12-08] MEDS: LISINOPRIL 5 MG TABLET PO SCH (10:06)
[2017-12-08] MEDS: MULTIVITAMIN TABLET PO SCH (10:06)
--- NOTE | 2017-12-08 12:30 | RADIOLOGY REPORT (SQ) ---
EXAM DESCRIPTION: CHEST SINGLE VIEW COMPLETED DATE/TIME: 12/08/2017 12:20 pm REASON FOR STUDY: CHECK FOR PICC LINE PLACEMENT COMPARISON: None. EXAM PARAMETERS: NUMBER OF VIEWS: One view. TECHNIQUE: Single frontal radiographic view of the chest acquired. RADIATION DOSE: NA LIMITATIONS: None. FINDINGS: LUNGS AND PLEURA: No opacities, masses or pneumothorax. No pleural effusion. MEDIASTINUM AND HILAR STRUCTURES: No masses. Contour normal. HEART AND VASCULAR STRUCTURES: Heart normal in size. Normal vasculature. BONES: No acute findings. HARDWARE: PICC line on the right side. Tip at the level of the superior vena cava. OTHER: No other significant finding. IMPRESSION: NO ACUTE RADIOGRAPHIC FINDING IN THE CHEST. PICC LINE APPEARS TO BE IN APPROPRIATE POSI TION. TECHNICAL DOCUMENTATION: JOB ID: [id number] [employer]- All Rights Reserved Reading location - IP/workstation name: [email or web address]
--- NOTE | 2017-12-08 13:16 | Operative Report ---
Nonrecallable Operative Report DATE OF SURGERY: 12/08/17 PREOPERATIVE DIAGNOSIS: Septic right great toe POSTOPERATIVE DIAGNOSIS: Same OPERATION: 1. Ultrasound directed insertion of 5 Indian double-lumen PICC line right basilic vein. 2. Interpretation of portable upright chest x-ray SURGEON: ANURADHA CASTREJON ANESTHESIA: Local TISSUE REMOVED OR ALTERED: None COMPLICATIONS: None ESTIMATED BLOOD LOSS: Scant INTRAOPERATIVE FINDINGS: See below PROCEDURE: Patient was placed in a semi-upright position right arm abducted scan with the variable frequency linear transducer. Findings were significant for compressible, patent right basilic vein suitable for cannulation The right upper extremity was prepped and draped with chlorhexidine. Surgical plan surgical timeout conducted. Using Seldinger technique, real-time ultrasound guidance after adequate anesthesia with lidocaine, 1%, a micro needle and wire were threaded into the right basilic vein. Tract was dilated up and a introducer sheath and guidewire were threaded into the right basilic vein. A dual lumen 5 Indian PICC line was trimmed to a final length of 44 cm. The dilator was removed, catheter threaded into the strip away sheath all the way to the hub, and the sheath removed leaving the catheter in good position. There is good aspiration and flush through both lumens. Biopatch and sterile dressing applied. Portable upright chest x-ray at bedside performed which revealed tip of the catheter in superior vena cava no kinking of the catheter. Patient tolerated the procedure well. Instructions provided to the patient.
--- NOTE | 2017-12-08 15:49 | PDOC PROGRESS REPORT ---
Subjective Progress Note for:: 12/08/17 Subjective:: this 37-year-old gentleman admitted with right toe cellulitis status post amputation of the right toe. His cultures are yielding multiple organisms including Staphylococcus aureus, Pseudomonas, group B and C beta Streptococcus, Peptostreptococcus as well as Prevotella. Patient's antibiotic was changed to Primaxin and he continues on the vancomycin for now. He has a dressing was changed and the wound was reviewed by the surgeon today. His blood sugars have been elevated understandably due to his acute infection. His Blood sugar is better today. Discussed with Dr Ly regarding further treatment of his infection. Patient apparently does have osteomyelitis from the amputated toe. Is growing multiple organisms in the culture including methicillin sensitive Staphylococcus aureus, Pseudomonas, group B and C beta Streptococcus, Peptostreptococcus and Prevotella. He is currently on broad-spectrum antibiotics. As per my discussion with Dr. Holt today a PICC line has been inserted. Reviewing the antibiotic profile it looks like a fluoroquinolone will be sufficient for treatment as this is Reason For Visit: DIABETES,TOE ULCER Physical Exam Vital Signs: Temp Pulse Resp BP Pulse Ox 98.6 F 88 18 149/96 H 97 12/08/17 12:47 12/08/17 12:47 12/08/17 12:47 12/08/17 12:47 12/08/17 12:47 Intake & Output 12/07/17 12/08/17 12/09/17 06:59 06:59 06:59 Intake Total 300 1880 Output Total 5 Balance 295 1880 Weight 136 kg 137.4 kg General appearance: PRESENT: no acute distress, morbidly obese, well-developed, well-nourished Head exam: PRESENT: atraumatic, normocephalic Neck exam: ABSENT: carotid bruit, JVD, lymphadenopathy, thyromegaly Respiratory exam: PRESENT: clear to auscultation cinthia. ABSENT: rales, rhonchi, wheezes Rectal exam: PRESENT: deferred Musculoskeletal exam: PRESENT: other - lower xtremity swelling, wrapped in bandage Results Laboratory Results: 12/05/17 07:05 12/05/17 07:05 Impressions: Foot X-Ray 12/01/17 20:21 IMPRESSION: SOFT TISSUE SWELLING 1ST TOE WITH POSSIBLE ULCER. NO ACUTE OSSEOUS ABNORMALITY. Chest X-Ray 12/08/17 00:00 IMPRESSION: NO ACUTE RADIOGRAPHIC FINDING IN THE CHEST. PICC LINE APPEARS TO BE IN APPROPRIATE POSITION. Assessment & Plan - Time Time Spent with patient: 15-24 minutes Medications reviewed and adjusted accordingly: Yes Anticipated discharge: Home with Homehealth Within: within 72 hours - Inpatient Certification Based on my medical assessment, after consideration of the patient's comorbidities, presenting symptoms, or acuity I expect that the services needed warrant INPATIENT care.: Yes Medical Necessity: Need for IV Antibiotics - Plan Summary Plan Summary: Plan is for home IV antibiotics, PICC line
[2017-12-08] MEDS: NORMAL SALINE 10 ML SDV (AFTER EACH USE) IV PRN (19:04)
[2017-12-08] MEDS: INSULIN GLARGINE,HUM.REC.ANLOG 300 UNIT/3 ML INSULN.PEN SUBCUT SCH (22:30)
[2017-12-08] MEDS: NORMAL SALINE 10 ML SDV (SCHEDULED) IV SCH (22:31)
[2017-12-09] MEDS: NORMAL SALINE 10 ML SDV (AFTER EACH USE) IV PRN ×2 (01:31→16:17)
[2017-12-09] MEDS: IMIPENEM/CILASTATIN SODIUM 500 MG in NORMAL SALINE 100 ML IV SCH ×2 (06:35→12:47)
[2017-12-09] MEDS: HEPARIN SOD (PORCINE) 5,000 UNIT/ML 1 ML SYRINGE SUBCUT SCH (06:36)
[2017-12-09] MEDS: MULTIVITAMIN TABLET PO SCH (08:45)
[2017-12-09] MEDS: LISINOPRIL 5 MG TABLET PO SCH (08:47)
[2017-12-09] MEDS: NORMAL SALINE 10 ML SDV (SCHEDULED) IV SCH (08:47)
[2017-12-09] MEDS: DOCUSATE SODIUM 100 MG CAPSULE PO SCH (08:47)
[2017-12-09] MEDS: INSULIN LISPRO 100 UNIT/ML 3 ML VIAL SUBCUT PRN (12:47)
[2017-12-09] MEDS: ACETAMINOPHEN 325 MG TABLET PO PRN (12:47)
[2017-12-09] MEDS ORDERED: LEVOFLOXACIN 750 MG/D5W RTU 750 MG/150 ML RTUPB IV SCH (15:00)
[2017-12-09 15:52] VITALS: BP 148/87
--- NOTE | 2017-12-09 18:23 | PDOC DISCHARGE SUMMARY ---
General - Admit/Disc Date/PCP Admission Date/Primary Care Provider: 12/01/17 23:13 NO LOCALMD Discharge Date: 12/09/17 - Discharge Diagnosis (1) Osteomyelitis Is this a current diagnosis for this admission?: Yes Summary: s/p amputation (2) Diabetic infection of right foot Is this a current diagnosis for this admission?: Yes (3) Hypertension Is this a current diagnosis for this admission?: Yes (4) Morbid obesity with BMI of 40.0-44.9, adult Is this a current diagnosis for this admission?: Yes (5) Newly diagnosed diabetes Is this a current diagnosis for this admission?: Yes - Additional Information Resuscitation Status: Full Code Discharge Diet: Cardiac, Diabetic Discharge Activity: Activity As Tolerated Prescriptions: Insulin Glargine,Hum.rec.anlog [Lantus Insulin 100 Unit/mL] 12 unit SUBCUT QHS # 4 insuln.pen Blood Sugar Diagnostic [Glucose Test Strip] 1 each ASDIR PRN #1 pkg PRN Reason: Lancets 1 each ACHS #1 each Lisinopril [Prinivil 5 mg Tablet] 5 mg PO DAILY #30 tablet Home Medications: Multivit-Min/Folic/Vit K/Lycop [One-A-Day Men's 50 Plus Tablet] 1 each PO DAILY 12/02/17 Blood Sugar Diagnostic [Glucose Test Strip] 1 each ASDIR PRN #1 pkg 12/09/17 Insulin Glargine,Hum.rec.anlog [Lantus Insulin 100 Unit/mL] 12 unit SUBCUT QHS # 4 insuln.pen 12/09/17 Lancets 1 each ACHS #1 each 12/09/17 Lisinopril [Prinivil 5 mg Tablet] 5 mg PO DAILY #30 tablet 12/09/17 History of Present Illness Patient complains of: Patient was admitted with an ulcer of his right great toe he was found to have hypoglycemia with a blood sugar of 280 History of Present Illness: Patient was admitted with the also the great toe SVETA HAYES is a 37 year old male with a past medical history of morbid obesity presents with approximately 3 weeks of right toe blister which has been nonpainful however developed a large ulcer with serosanguineous drainage, prompting him to seek evaluation emergency room. Patient denies previous episode. In the emergency room he is found to have a 1 x 1 cm ulcer to the plantar surface of his great toe with surrounding maceration. He denies antibiotic use and is also found to have hyperglycemia of 280. Admitting weight loss over the last year. He started on empiric antibiotics and for the hospitalist for admission. Hospital Course Hospital Course: Patient was admitted with an ulcer of his right great toe he was found to have hypoglycemia with a blood sugar of 280. He was started on intravenous antibiotics for the infected toe and subsequently seen by general surgery. Patient then had an amputation of the right great toe done with confirmation of osteomyelitis of the toe. He was started on Lantus insulin and received diabetic teaching as well. Next He has been hemodynamically stable while in hospital. It is felt that he will require at least 4 weeks of IV antibiotics and with his cultures growing poorly microbial organisms including MSSA, pseudomonas, group AMB Streptococcus and Peptococcus it is felt that patient will require IV antibiotics for optimal treatment. He was also sent home on home VAC and home health arrangements have been made. Patient will return to the hospital for his daily antibiotics as explained to him and he will follow-up as outpatient for further adjustment of his insulin and probably initiation of oral hypoglycemic agent is warranted. Physical Exam Vital Signs: Temp Pulse Resp BP Pulse Ox 98.4 F 77 18 148/87 H 96 12/09/17 15:39 12/09/17 15:39 12/09/17 15:39 12/09/17 15:39 12/09/17 15:39 Intake & Output 12/08/17 12/09/17 12/10/17 06:59 06:59 06:59 Intake Total 1880 100 Balance 1880 100 Weight 137.4 kg 138.2 kg General appearance: PRESENT: no acute distress, well-developed, well-nourished Head exam: PRESENT: atraumatic, normocephalic Eye exam: PRESENT: conjunctiva pink, EOMI, PERRLA. ABSENT: scleral icterus Ear exam: PRESENT: normal external ear exam Mouth exam: PRESENT: moist, tongue midline Neck exam: ABSENT: carotid bruit, JVD, lymphadenopathy, thyromegaly Respiratory exam: PRESENT: clear to auscultation cinthia. ABSENT: rales, rhonchi, wheezes Cardiovascular exam: PRESENT: RRR. ABSENT: diastolic murmur, rubs, systolic murmur Pulses: PRESENT: normal dorsalis pedis pul Vascular exam: PRESENT: normal capillary refill GI/Abdominal exam: PRESENT: normal bowel sounds, soft. ABSENT: distended, guarding, mass, organolmegaly, rebound, tenderness Rectal exam: PRESENT: deferred Extremities exam: PRESENT: full ROM. ABSENT: calf tenderness, clubbing, pedal edema Musculoskeletal exam: PRESENT: other - R foot in bandage, decreased swelling erythema Neurological exam: PRESENT: alert, awake, oriented to person, oriented to place , oriented to time, oriented to situation, CN II-XII grossly intact. ABSENT: motor sensory deficit Psychiatric exam: PRESENT: appropriate affect, normal mood. ABSENT: homicidal ideation, suicidal ideation Skin exam: PRESENT: dry, intact, warm. ABSENT: cyanosis, rash Results Laboratory Results: 12/05/17 07:05 12/05/17 07:05 Impressions: Foot X-Ray 12/01/17 20:21 IMPRESSION: SOFT TISSUE SWELLING 1ST TOE WITH POSSIBLE ULCER. NO ACUTE OSSEOUS ABNORMALITY. Chest X-Ray 12/08/17 00:00 IMPRESSION: NO ACUTE RADIOGRAPHIC FINDING IN THE CHEST. PICC LINE APPEARS TO BE IN APPROPRIATE POSITION. Qualifiers - * PATIENT BEING DISCHARGED WITH ANY OF THE FOLLOWING DIAGNOSIS: No
[2017-12-10] MEDS ORDERED: LEVOFLOXACIN 750 MG/D5W RTU 750 MG/150 ML RTUPB IV SCH (10:00)
--- NOTE | 2017-12-10 18:15 | DISCHARGE SUMMARY E ---
Discharge Summary NAME: SVETA HAYES : 1980 AGE: 37Y ADMITTED: 12/01/2017 DISCHARGED: 12/09/2017 REASON FOR ADMISSION: Septic right great toe. SUMMARY OF HOSPITALIZATION: The patient is a 37-year-old white male, history of diabetes mellitus, neglected, and obesity who presented to the Emergency Department complaining of sore active smelly drainage from his right great toe. He was admitted to the hospitalist service with surgery consulting. Patient was kept n.p.o. on IV fluids, taken to the operating room by Dr. Dylon Maxwell and underwent right great toe debridement. Intraoperative cultures grew out a variety of organisms including beta Strep. group C, beta Strep. group B, Staph. aureus, Peptostreptococcus, and Prevotella species. Patient's toe did not improve over the next 48 hours and patient was taken back to the operating room by Dr. Ly on 12/04/2017 where he underwent right great toe amputation with removal of the distal end of the proximal phalanx. The wound was left open with the intent to close by delayed primary closure. However, by the third postoperative day, the wound was felt to be clean, without drainage, but at risk for closure. Therefore, a wound V.A.C. was placed. By the eighth hospital day, the patient was felt to have received maximum benefit from the hospitalization. He did have a PICC line inserted, right upper extremity, by Dr. Ly on 12/08/2017. Arrangements were made for him to go home with home IV antibiotics, and outpatient wound V.A.C. therapy. FINAL DIAGNOSES: 1. Septic right great toe with osteomyelitis, status post right great toe amputation with planned closure by secondary intention. 2. Obesity. 3. Diabetes mellitus. DISPOSITION: The patient will be discharged home in the care of his family. DISCHARGE PLAN: Follow up with [facility], approximately 1 week. Arrangements have been made for [employer] [employer], to deliver intravenous antibiotics, specifically Levaquin 750 mg IV q. day and wound V.A.C. change every 3 days, black sponge, 125 mmHg. DICTATING PHYSICIAN: ANURADHA LY M.D. [id number] PHY#: [id number] ID: [id number] JOB#: [id number] ACCT: [id number] cc:Kve SMITH M.D. >
== END 2017-12-09 19:10 | disposition home or self-care (01) | DRG 617 ==
LOC: ER 18:35 → EH 23:13 → 4S 12-02 01:45 → 2N 12-04 16:35
PROVIDERS: ADMIT Internal Medicine; ATTEND Internal Medicine
PROC: 3E0F73Z Introduction of Anti-inflammatory into Respiratory Tract, Via Natural or Artificial Opening (ICD-10-PCS; 2017-12-01)
PROC: 0KBV0ZZ Excision of Right Foot Muscle, Open Approach (ICD-10-PCS; 2017-12-02)
PROC: 0QBQ0ZX Excision of Right Toe Phalanx, Open Approach, Diagnostic (ICD-10-PCS; 2017-12-02)
PROC: 5A09357 Assistance with Respiratory Ventilation, Less than 24 Consecutive Hours, Continuous Positive Airway Pressure (ICD-10-PCS; 2017-12-02)
PROC: 3E0F73Z Introduction of Anti-inflammatory into Respiratory Tract, Via Natural or Artificial Opening (ICD-10-PCS; 2017-12-02)
PROC: 0HBRXZZ Excision of Toe Nail, External Approach (ICD-10-PCS; 2017-12-02)
PROC: 0Y6P0Z1 Detachment at Right 1st Toe, High, Open Approach (ICD-10-PCS; principal; 2017-12-04 14:30)
PROC: 02HV33Z Insertion of Infusion Device into Superior Vena Cava, Percutaneous Approach (ICD-10-PCS; 2017-12-08)
PROC: B548ZZA Ultrasonography of Superior Vena Cava, Guidance (ICD-10-PCS; 2017-12-08)
DX: E11.621 Type 2 diabetes mellitus with foot ulcer (principal); Z68.41 Body mass index [BMI] 40.0-44.9, adult; M86.171 Other acute osteomyelitis, right ankle and foot; L97.519 Non-pressure chronic ulcer of other part of right foot with unspecified severity; Z23 Encounter for immunization; L03.031 Cellulitis of right toe; I10 Essential (primary) hypertension; E11.69 Type 2 diabetes mellitus with other specified complication; E66.01 Morbid (severe) obesity due to excess calories; E11.649 Type 2 diabetes mellitus with hypoglycemia without coma; B95.61 Methicillin susceptible Staphylococcus aureus infection as the cause of diseases classified elsewhere; B95.1 Streptococcus, group B, as the cause of diseases classified elsewhere; Z60.2 Problems related to living alone; Z83.3 Family history of diabetes mellitus; Z80.8 Family history of malignant neoplasm of other organs or systems
CPT/HCPCS: 01470; 01480; 36415; 36569; 71045; 76937; 80048; 80053; 80202; 82565; 82962; 83036; 84443; 85025; 85027; 85652; 86140; 87040; 87070; 87075; 87077; 87186; 87205; 88304; 88311; 90471; 90715; 93925; 96365; 99285; C1752; C1769; J0330; J0692; J0743; J1642; J1644; J1815; J1885; J1956; J2250; J2704; J3010; J3370; J3490; J7030; J7060

== ENCOUNTER → 2018-01-19 | Outpatient (CLI) | payer OTHER | LOC: OD 12:01 | DX: L97.512 Non-pressure chronic ulcer of other part of right foot with fat layer exposed (principal) ==

== ENCOUNTER → 2018-08-23 | Outpatient (CLI) | payer OTHER ==
[2018-08-23 17:53] LABS: HEMOGLOBIN 14.4 g/dL (13.5-17.0); MEAN CORPUSCULAR HEMOGLOBIN 29.7 pg (27.0-33.4); MEAN CORPUSCULAR HGB CONC 34.2 g/dL (32.0-36.0); MEAN CORPUSCULAR VOLUME 87 fl (80-97); RED BLOOD COUNT 4.84 10^6/uL (4.35-5.55); RED CELL DISTRIBUTION WIDTH 14.8 % (11.5-14.0); WHITE BLOOD COUNT 9.5 10^3/uL (4.0-10.5)
[2018-08-23 18:14] LABS: ABSOLUTE LYMPHOCYTES# (MANUAL) 3.4 10^3/uL (0.5-4.7); ABSOLUTE MONOCYTES # (MANUAL) 0.6 10^3/uL (0.1-1.4); ABSOLUTE NEUTROPHILS# (MANUAL) 5.2 10^3/uL (1.7-8.2); ALANINE AMINOTRANSFERASE 24 U/L (21-72); ALBUMIN 4.5 g/dL (3.5-5.0); ALKALINE PHOSPHATASE 92 U/L (38-126); ANION GAP 11 (5-19); ASPARTATE AMINO TRANSFERASE 17 U/L (17-59); BASOPHILS % (MANUAL) 0 % (0-2); BILIRUBIN,DIRECT 0.3 mg/dL (0.0-0.4); BILIRUBIN,TOTAL 0.7 mg/dL (0.2-1.3); BLOOD UREA NITROGEN 25 mg/dL (7-20); CALCIUM 10.1 mg/dL (8.4-10.2); CARBON DIOXIDE 26 mmol/L (22-30); CHLORIDE 106 mmol/L (98-107); EOSINOPHILS % (MANUAL) 3 % (0-6); GLUCOSE 77 mg/dL (75-110); LYMPHOCYTES % (MANUAL) 36 % (13-45); MONOCYTES % (MANUAL) 6 % (3-13); POTASSIUM 4.9 mmol/L (3.6-5.0); SEGMENTED NEUTROPHILS % (MAN) 55 % (42-78); SODIUM 142.5 mmol/L (137-145); TOTAL CELLS COUNTED 100; TOTAL PROTEIN 6.7 g/dL (6.3-8.2)
[2018-08-23 18:17] LABS: ANISOCYTOSIS SLIGHT; PLATELET COMMENT ADEQUATE; PLATELET LARGE PRESENT; POLYCHROMASIA SLIGHT
[2018-08-23 18:20] LABS: PLATELET COUNT 257 10^3/uL (150-450)
== END ==
LOC: OD 16:56
DX: Z00.00 Encounter for general adult medical examination without abnormal findings (principal)
CPT/HCPCS: 36415; 80053; 83036; 84443; 85025

== ENCOUNTER → 2019-05-04 | Outpatient (CLI) | payer OTHER ==
[2019-05-04 12:13] LABS: ABSOLUTE BASOPHILS # (AUTO) 0.1 10^3/uL (0.0-0.2); ABSOLUTE EOSINOPHILS # (AUTO) 0.2 10^3/uL (0.0-0.6); ABSOLUTE LYMPHOCYTES (AUTO) 1.8 10^3/uL (0.5-4.7); ABSOLUTE MONOCYTES (AUTO) 0.6 10^3/uL (0.1-1.4); ABSOLUTE NEUT (AUTO) 4.5 10^3/uL (1.7-8.2); BASOPHILS % (AUTO) 1.1 % (0-2); EOSINOPHILS % (AUTO) 3.2 % (0-6); HEMATOCRIT 42.6 % (37.9-51.0); HEMOGLOBIN 14.5 g/dL (13.5-17.0); LYMPHOCYTES % (AUTO) 25.1 % (13-45); MEAN CORPUSCULAR HEMOGLOBIN 30.6 pg (27.0-33.4); MEAN CORPUSCULAR VOLUME 90 fl (80-97); MONOCYTES % (AUTO) 7.9 % (3-13); RED BLOOD COUNT 4.72 10^6/uL (4.35-5.55); RED CELL DISTRIBUTION WIDTH 13.8 % (11.5-14.0); SEGMENTED NEUTROPHILS % (AUTO) 62.7 % (42-78); TOTAL CELLS COUNTED % (AUTO) 100 %; WHITE BLOOD COUNT 7.1 10^3/uL (4.0-10.5)
[2019-05-04 12:32] LABS: PLATELET COUNT 224 10^3/uL (150-450)
[2019-05-04 12:33] LABS: ANION GAP 8 (5-19); BLOOD UREA NITROGEN 21 mg/dL (7-20); CALCIUM 9.6 mg/dL (8.4-10.2); CARBON DIOXIDE 26 mmol/L (22-30); CHLORIDE 109 mmol/L (98-107); CHOLESTEROL 171.62 mg/dL (0-200); GLUCOSE 112 mg/dL (75-110); TRIGLYCERIDES 104 mg/dL (<150)
[2019-05-04 12:44] LABS: DIRECT LDL 99 mg/dL (<100)
== END ==
LOC: CCC 11:18
DX: Z01.812 Encounter for preprocedural laboratory examination (principal)
CPT/HCPCS: 36415; 80048; 80061; 83036; 85025

== ENCOUNTER → 2020-04-04 | Outpatient (CLI) | payer OTHER ==
[2020-04-04 12:51] LABS: ALBUMIN 4.4 g/dL (3.5-5.0); ALKALINE PHOSPHATASE 107 U/L (38-126); ANION GAP 10 (5-19); ASPARTATE AMINO TRANSFERASE 18 U/L (17-59); BILIRUBIN,DIRECT 0.3 mg/dL (0.0-0.4); BILIRUBIN,TOTAL 0.5 mg/dL (0.2-1.3); BLOOD UREA NITROGEN 31 mg/dL (7-20); CALCIUM 9.8 mg/dL (8.4-10.2); CARBON DIOXIDE 27 mmol/L (22-30); CHLORIDE 105 mmol/L (98-107); GLUCOSE 123 mg/dL (75-110); POTASSIUM 5.1 mmol/L (3.6-5.0); TOTAL PROTEIN 7.1 g/dL (6.3-8.2)
== END ==
LOC: CCC 11:48
PROVIDERS: ATTEND Family Medicine
DX: E10.8 Type 1 diabetes mellitus with unspecified complications (principal)
CPT/HCPCS: 36415; 80053; 83036

== ENCOUNTER → 2020-04-25 | Outpatient (CLI) | payer OTHER ==
[2020-04-25 12:01] LABS: ABSOLUTE BASOPHILS # (AUTO) 0.1 10^3/uL (0.0-0.2); ABSOLUTE EOSINOPHILS # (AUTO) 0.2 10^3/uL (0.0-0.6); ABSOLUTE LYMPHOCYTES (AUTO) 1.7 10^3/uL (0.5-4.7); ABSOLUTE MONOCYTES (AUTO) 0.5 10^3/uL (0.1-1.4); ABSOLUTE NEUT (AUTO) 4.1 10^3/uL (1.7-8.2); BASOPHILS % (AUTO) 1.5 % (0-2); EOSINOPHILS % (AUTO) 3.1 % (0-6); HEMATOCRIT 41.7 % (37.9-51.0); HEMOGLOBIN 14.4 g/dL (13.5-17.0); LYMPHOCYTES % (AUTO) 25.9 % (13-45); MEAN CORPUSCULAR HEMOGLOBIN 30.6 pg (27.0-33.4); MEAN CORPUSCULAR HGB CONC 34.5 g/dL (32.0-36.0); MEAN CORPUSCULAR VOLUME 89 fl (80-97); MONOCYTES % (AUTO) 7.2 % (3-13); PLATELET COUNT 242 10^3/uL (150-450); RED BLOOD COUNT 4.71 10^6/uL (4.35-5.55); SEGMENTED NEUTROPHILS % (AUTO) 62.3 % (42-78); TOTAL CELLS COUNTED % (AUTO) 100 %; WHITE BLOOD COUNT 6.6 10^3/uL (4.0-10.5)
[2020-04-25 12:26] LABS: UR PRO/CREAT RATIO RESULT 0.2 mg/mg (0.0-0.2); URINE CREATININE 49.9 mg/dL (22-328); URINE PROTEIN 11.5 mg/dL (<12)
== END ==
LOC: CCC 10:29
PROVIDERS: ATTEND Family Medicine
DX: Z13.9 Encounter for screening, unspecified (principal)
CPT/HCPCS: 36415; 82570; 84156; 85025